=== PATIENT | male | born 1950 | race Caucasian/White ===

== ENCOUNTER → 2017-01-05 | Outpatient (CLI) | payer OTHER ==
[2017-01-05 12:24] LABS: CH 32.1; CHCM 33.7; HDW 2.69; HGB 16.4 gm/dL (13.0-17.5); MCHC 33.4 g/dL (31.0-37.0); MCV 95.9 fL (80.0-100.0); Mean Platelet Volume 6.9; RBC 5.11 m/uL (4.30-5.90); RDW 13.3 % (11.5-15.5); WBC 6.7 k/uL (3.8-10.6)
[2017-01-05 12:36] LABS: ALT 76 U/L (21-72); AST 45 U/L (17-59); Alkaline Phosphatase 42 U/L (38-126); Anion Gap 11 mmol/L; Blood Urea Nitrogen 16 mg/dL (9-20); Calcium 9.9 mg/dL (8.4-10.2); Carbon Dioxide 30 mmol/L (22-30); Chloride 102 mmol/L (98-107); Glucose 93 mg/dL (74-99); Magnesium 1.9 mg/dL (1.6-2.3); Non-African American GFR(MDRD) >60 (>60 ml/min/1.73 sqM); Phosphorous 3.5 mg/dL (2.5-4.5); Sodium 143 mmol/L (137-145); Total Bilirubin 0.6 mg/dL (0.2-1.3); Total Protein 7.8 g/dL (6.3-8.2)
--- NOTE | 2017-01-05 13:13 | US ---
EXAMINATION TYPE: US venous doppler duplex LE DATE OF EXAM: 01/05/2017 11:50 AM COMPARISON: NONE CLINICAL HISTORY: 66-year-old male I82.401 Embolism deep vein thrombosis. Bilateral calf pain, left l onger duration than right, no previous DVT SIDE PERFORMED: bilateral TECHNIQUE: The lower extremity deep venous system is examined utilizing real time linear array sonog indra with graded compression, doppler sonography and color-flow sonography. FINDINGS: VESSELS IMAGED: External Iliac Vein (EIV) Common Femoral Vein Deep Femoral Vein Greater Saphenous Vein * Femoral Vein Popliteal Vein Proximal Calf Veins (* superficial vessels) Right Leg: neg for RLE DVT Left Leg: neg for LLE DVT Results called to Dr Mcnulty at the time of the exam. IMPRESSION: No evidence for DVT within the bilateral lower extremities imaged from the groin to the upper calves.
== END | disposition home or self-care (01) ==
LOC: RADUSWWP 11:24
PROVIDERS: ATTEND Internal Medicine Sleep Medicine
DX: I82.401 Acute embolism and thrombosis of unspecified deep veins of right lower extremity (principal); I10 Essential (primary) hypertension
CPT/HCPCS: 80053; 83735; 84100; 85027; 93970

== ENCOUNTER → 2017-05-27 | Outpatient (CLI) | payer BC, MEDICARE ==
[2017-05-27 11:25] LABS: CH 32.6; CHCM 33.9; HCT 50.1 % (39.0-53.0); HDW 2.66; HGB 16.7 gm/dL (13.0-17.5); MCH 32.3 pg (25.0-35.0); MCHC 33.4 g/dL (31.0-37.0); MCV 96.6 fL (80.0-100.0); Mean Platelet Volume 6.7; RBC 5.18 m/uL (4.30-5.90); RDW 13.4 % (11.5-15.5); WBC 8.7 k/uL (3.8-10.6)
[2017-05-27 11:51] LABS: ALT 82 U/L (21-72); AST 41 U/L (17-59); Alkaline Phosphatase 53 U/L (38-126); Anion Gap 12 mmol/L; Blood Urea Nitrogen 16 mg/dL (9-20); Calcium 10.1 mg/dL (8.4-10.2); Carbon Dioxide 22 mmol/L (22-30); Chloride 102 mmol/L (98-107); Glucose 97 mg/dL (74-99); Non-African American GFR(MDRD) >60 (>60 ml/min/1.73 sqM); Potassium 4.6 mmol/L (3.5-5.1); Sodium 136 mmol/L (137-145); Total Bilirubin 0.6 mg/dL (0.2-1.3); Total Protein 7.3 g/dL (6.3-8.2)
[2017-05-27 12:18] LABS: Prostate Specific Antigen 0.43 ng/mL (0.00-4.00)
== END | disposition home or self-care (01) ==
LOC: LABWHC1 11:07
PROVIDERS: ATTEND Internal Medicine Sleep Medicine
DX: I10 Essential (primary) hypertension (principal); E55.9 Vitamin D deficiency, unspecified; N40.0 Benign prostatic hyperplasia without lower urinary tract symptoms
CPT/HCPCS: 36415; 80053; 82306; 84153; 85027

== ENCOUNTER → 2017-07-19 | Outpatient (CLI) | payer BC, MEDICARE ==
--- NOTE | 2017-07-19 16:52 | BD ---
EXAMINATION TYPE: MG DEXA axial skeleton. DATE OF EXAM: 07/19/2017 COMPARISON: NONE CLINICAL HISTORY: 67-year-old male screening for osteoporosis Height: 5 FT 9 IN Weight: 244 FRAX RISK QUESTIONS: Alcohol (3 or more units per day): NO Family History (Parent hip fracture): NO Glucocorticoids (More than 3mos): YES (Ex: prednisone, prednisolone, methylprednisolone, dexamethasone, and hydrocortisone). History of Fracture in Adulthood: NO Secondary Osteoporosis: 1. Type 1 Diabetes: NO 2. Hyperthyroidism: NO 3. Menopause before 45: N/A 4. Malnutrition: NO 5. Chronic liver disease: NO Rheumatoid Arthritis: NO Current Tobacco Use: NO RISK FACTORS HISTORY OF: Surgery to Spine/Hip(right/left)/Wrist (right/left): BASE OF THUMB When: 4-5 YEARS AGO Active: YES Postmenopausal woman: N/A MEDICATIONS: Prednisone or other steroids: YES How Lon 1 1/2 YEARS Additional Medications: ATENOLOL, PREDISONE, CYMBICORT, ALBUTEROL, SINGULAIR, ACIFEX Additional History: EXAM MEASUREMENTS: Bone mineral densitometry was performed using the [employer] System. Bone mineral density as measured about the Lumbar spine is: ----- L1-L4(G/cm2): 0.937 T Score Values are as follows: ----- L2: -2.4 ----- L3: -1.8 ----- L4: -3.2 (outlier) ----- L1-L4: -2.0 BASELINE Bone mineral density about the R hip (g/cm2): 0.854 Bone mineral density about the L hip (g/cm2): 0.945 T Score values are as follows: -----R Neck: -1.3 -----L Neck: -0.7 -----R Total: -0.5 -----L Total: 0.3 BASELINE IMPRESSION: Osteopenia (T Score between -2.5 and -1 as noted by T score values There is slightly increased risk of fracture and the patient may be considered for treatment. Re-Screen 2-5 years. NOTE: T-SCORE=SD OF THE YOUNG ADULT MEAN.
== END | disposition home or self-care (01) ==
LOC: RADBDWWP 08:17
PROVIDERS: ATTEND Family Medicine
DX: Z13.820 Encounter for screening for osteoporosis (principal); M85.80 Other specified disorders of bone density and structure, unspecified site; Z79.52 Long term (current) use of systemic steroids
CPT/HCPCS: 77080

== ENCOUNTER → 2017-12-16 | Outpatient (CLI) | payer MEDICARE, BC ==
--- NOTE | 2017-12-16 13:10 | XR ---
EXAMINATION TYPE: XR chest 2V DATE OF EXAM: 12/16/2017 COMPARISON: 06/04/2016 INDICATION: Cough, asthma TECHNIQUE: Frontal and lateral views of the chest are obtained. FINDINGS: The heart size is normal. The pulmonary vasculature is normal. The lungs are clear. IMPRESSION: 1. No acute pulmonary process.
== END | disposition home or self-care (01) ==
LOC: RADXRMAIN 12:42
PROVIDERS: ATTEND Internal Medicine Sleep Medicine
DX: J20.9 Acute bronchitis, unspecified (principal)
CPT/HCPCS: 71046

== ENCOUNTER → 2018-01-31 | Outpatient (CLI) | payer MEDICARE, BC ==
[2018-01-31 11:20] LABS: Anion Gap 13 mmol/L; Blood Urea Nitrogen 19 mg/dL (9-20); Calcium 9.4 mg/dL (8.4-10.2); Carbon Dioxide 24 mmol/L (22-30); Chloride 101 mmol/L (98-107); Glucose 107 mg/dL (74-99); Magnesium 1.8 mg/dL (1.6-2.3); Potassium 4.4 mmol/L (3.5-5.1); Sodium 138 mmol/L (137-145)
== END | disposition home or self-care (01) ==
LOC: LABWHC1 10:27
PROVIDERS: ATTEND Internal Medicine Sleep Medicine
DX: I10 Essential (primary) hypertension (principal)
CPT/HCPCS: 36415; 80048; 83735; 84100

== ENCOUNTER → 2018-06-17 | Outpatient (CLI) | payer MEDICARE, BC | END | disposition home or self-care (01) | LOC: LABWHC1 10:54 | PROVIDERS: ATTEND Internal Medicine Sleep Medicine | DX: J20.9 Acute bronchitis, unspecified (principal) | CPT/HCPCS: 87070; 87205 ==

== ENCOUNTER → 2019-01-19 | Outpatient (CLI) | payer MEDICARE, BC ==
--- NOTE | 2019-01-19 16:23 | XR ---
EXAMINATION TYPE: XR chest 2V DATE OF EXAM: 01/19/2019 COMPARISON: 12/16/2017 INDICATION: J 20.9 TECHNIQUE: Frontal and lateral views of the chest are obtained. FINDINGS: The heart size is normal. The pulmonary vasculature is normal. The lungs are clear. IMPRESSION: 1. No acute pulmonary process.
== END | disposition home or self-care (01) ==
LOC: RADXRMAIN 15:47
PROVIDERS: ATTEND Internal Medicine Sleep Medicine
DX: J20.9 Acute bronchitis, unspecified (principal)
CPT/HCPCS: 71046

== ENCOUNTER → 2019-01-26 | Outpatient (CLI) | payer MEDICARE, BC ==
[2019-01-26 12:18] LABS: Basophils % (A) 0 %; Eosinophils % (A) 0 %; HCT 51.4 % (39.0-53.0); HGB 16.5 gm/dL (13.0-17.5); Lymphocytes % (A) 7 %; MCH 30.8 pg (25.0-35.0); MCV 96.1 fL (80.0-100.0); Monocytes # (A) 0.6 k/uL (0-1.0); Monocytes % (A) 4 %; Neutrophils % (A) 88 %; Platelet Count 215 k/uL (150-450); RBC 5.35 m/uL (4.30-5.90); RDW 13.7 % (11.5-15.5); WBC 13.7 k/uL (3.8-10.6)
== END | disposition home or self-care (01) ==
LOC: LABWHC1 11:06
PROVIDERS: ATTEND Internal Medicine Sleep Medicine
DX: J45.51 Severe persistent asthma with (acute) exacerbation (principal)
CPT/HCPCS: 36415; 85025

== ENCOUNTER → 2019-07-07 | Outpatient (CLI) | payer MEDICARE, BC ==
--- NOTE | 2019-07-08 09:35 | US ---
EXAMINATION TYPE: US kidneys/renal and bladder DATE OF EXAM: 07/07/2019 COMPARISON: NONE CLINICAL HISTORY: R31.9 Hematuria. microscopic hematuria, bilateral groin pain, h/o bladder surgery 2 0+yrs ago EXAM MEASUREMENTS: Right Kidney: 9.5 x 4.7 x 6.0cm Left Kidney: 11.9 x 4.0 x 6.7 cm limited visualization due to large body habitus Right Kidney: No hydronephrosis or masses seen Left Kidney: No hydronephrosis or masses seen Bladder: wnl Bilateral Jets seen: yes There is no evidence for hydronephrosis at this point in time. No nephrolithiasis is seen. No danny s are identified. The urinary bladder is anechoic. Bilateral ureteral jets are seen. IMPRESSION: Negative
== END | disposition home or self-care (01) ==
LOC: RADUSWWP 16:08
PROVIDERS: ATTEND Family Medicine
DX: R31.9 Hematuria, unspecified (principal)
CPT/HCPCS: 76770

== ENCOUNTER → 2019-08-01 | Outpatient (CLI) | payer MEDICARE, BC ==
--- NOTE | 2019-08-01 12:56 | XR ---
EXAMINATION TYPE: XR chest 2V DATE OF EXAM: 08/01/2019 COMPARISON: 01/19/2019 HISTORY: 69-year-old male with sinus drainage, J44.9 TECHNIQUE: AP and lateral views FINDINGS: The heart is normal size. Aorta and pulmonary vasculature are within normal limits. Strandy atelectas is in the lower lungs. Mild interstitial prominence is unchanged. No consolidation or pleural effusio n. IMPRESSION: Chronic changes with strandy bibasilar atelectasis. No acute cardiopulmonary process.
== END | disposition home or self-care (01) ==
LOC: RADXRMAIN 12:14
PROVIDERS: ATTEND Internal Medicine Sleep Medicine
DX: J98.11 Atelectasis (principal); J44.9 Chronic obstructive pulmonary disease, unspecified
CPT/HCPCS: 71046

== ENCOUNTER → 2020-02-21 | Day surgery (SDC) | payer MEDICARE, BC ==
[2020-02-19 14:48] VITALS: BMI 36.9
[~2020-02-21] MED LIST: LACTATED RINGERS 1,000 ML IV ONE; LACTATED RINGERS 1,000 ML IV SCH; LIDOCAINE 1% (10MG/ML) FOR IV START INTRADERMA ONE; MIDAZOLAM 2 MG/2 ML VIAL ONE; PROPOFOL 10 MG/ML 20 ML VIAL IV ONE
[2020-02-21 08:13] VITALS: RESP 18; TEMP 97.4
[2020-02-21 08:20] LABS: Glucose,Whole Blood 97 mg/dL (75-99)
--- NOTE | 2020-02-21 09:13 | P.PCN ---
Date of Procedure: 02/21/20 Procedure(s) Performed: BRIEF HISTORY: Patient is a 69-year-old, pleasant, white male is scheduled for an upper endoscopy as a part of surveillance of long-standing history of GERD and Zafar's esophagus. PROCEDURE PERFORMED: Esophagogastroduodenoscopy with biopsy. PREOPERATIVE DIAGNOSIS: GERD/Zafar's esophagus. IV sedation per anesthesia. PROCEDURE: After informed consent was obtained, the patient was brought into the endoscopy unit. IV sedation was administered by Anesthesia under continuous monitoring. Initially the Olympus GIF-140 video endoscope was inserted into the mouth. Esophagus intubated without any difficulty. It was gradually advanced into the stomach and duodenum and carefully examined. The bulb and the second part of the duodenum appeared normal. The scope at this time was withdrawn to the stomach, adequately insufflated with air, and upon careful examination, mucosa of the antrum, body, had mild gastritis and small gastric polyps which were biopsied. The cardia and the fundus appeared normal. The scope was then withdrawn into the esophagus. Small sliding-type well hernia noted. The GE junction was located at 35 cm from the incisors. There was long segment of Zafar's esophagus extending from 31-35 cm from the incisors which appeared smooth with no nodularity seen. Multiple biopsies were done to rule out dysplasia. The rest of the esophagus appeared normal. There were no erosions or ulcerations seen and the patient tolerated the procedure well. IMPRESSION: 1. Long segment Zafar's esophagus extending from 31-35 cm from the incisors status post multiple biopsies to rule out dysplasia. 2. Small hiatal hernia. 3. Mild gastritis and small gastric polyps RECOMMENDATIONS: The findings of this examination were discussed with the patient as well as his family. He was advised to follow with the biopsy results. He will continue with AcipHex 20 mg twice daily and follow antireflux measures. If the biopsy does not show any evidence of dysplasia he can have a repeat upper endoscopy in 2-3 years.
[2020-02-21 09:39] VITALS: BP 130/82; PULSE 67
== END ==
LOC: ORWHC2ENDO 07:41
PROVIDERS: ATTEND Internal Medicine Gastroenterology
DX: K22.70 Barrett's esophagus without dysplasia (principal); K44.9 Diaphragmatic hernia without obstruction or gangrene; K31.7 Polyp of stomach and duodenum; K21.9 Gastro-esophageal reflux disease without esophagitis; I10 Essential (primary) hypertension; J45.909 Unspecified asthma, uncomplicated; Z88.1 Allergy status to other antibiotic agents; Z88.8 Allergy status to other drugs, medicaments and biological substances; Z79.51 Long term (current) use of inhaled steroids; Z79.899 Other long term (current) drug therapy
CPT/HCPCS: 88305; 43239; J2250; J2704

== ENCOUNTER 2020-04-11 07:50 | Observation (INO) | payer MEDICARE, BC ==
--- NOTE | 2020-04-11 08:16 | ED ---
General Adult HPI - General Chief complaint: Neuro Symptoms/Deficit Stated complaint: Confused Time Seen by Provider: 04/11/20 08:12 Source: patient Mode of arrival: wheelchair Limitations: no limitations - History of Present Illness Initial comments: Dictation was produced using [employer] dictation software. please excuse any grammatical, word or spelling errors. This patient was cared for during a federal and state declared state of emergency secondary to Covid 19 Chief Complaint: 70-year-old male with past medical history of asthma, hypertension, Zafar's esophagus presents with confusion and left hand paresthesias History of Present Illness: 70 year-old male here he has multiple comorbidities. He is accompanied by his was at bedside. who is at bedside reports that patient woke up this morning at approximately 6 AM with confusion. She describes as confusion as not remembering what their plans were for today. Yesterday they were making preparations to go camping in the city of [place]. This morning he was confused and forgot that they were supposed go camping today. Furthermore, he did not know where [place] was. Patient was confused/amnestic for several minutes however memory return. He remembers not remembering. Patient states that he also experience some left hand paresthesias that lasted for several minutes. Patient has any history of stroke. He does have strong family history of strokes however. Denies any other focal neurologic deficits. The ROS documented in this emergency department record has been reviewed and confirmed by me. Those systems with pertinent positive or negative responses have been documented in the HPI. All other systems are other negative and/or noncontributory. PHYSICAL EXAM: General Impression: Alert and oriented x3, not in acute distress HEENT: Normocephalic atraumatic, extra-ocular movements intact, pupils equal and reactive to light bilaterally, mucous membranes moist. Cardiovascular: Heart regular rate and rhythm Chest: Able to complete full sentences, no retractions, no tachypnea Abdomen: abdomen soft, non-tender, non-distended, no organomegaly Musculoskeletal: Pulses present and equal in all extremities, no peripheral edema Motor: no focal deficits noted Neurological: CN II-XII grossly intact, no focal motor or sensory deficits noted Skin: Intact with no visualized rashes Psych: Normal affect and mood ED course: 60-year-old male presents with confusion and left upper extremity paresthesias as upon arrival are within acceptable limits. Patient is asymptomatic at bedside. His physical exam is unremarkable. Patient is alert and oriented 3. He is not aphasic Clinical presentation concerning for transient ischemic attack. Laboratory evaluation obtained. CBC, coag panel, metabolic panel is unremarkable. Troponin is negative. Chest x-ray showed atelectasis versus infiltrate. X-ray likely consistent with atelectasis given patient has no respiratory symptoms or infectious symptoms. Computed tomography scan of the brain was obtained showing mild to moderate chronic small vessel ischemic disease. There are no acute intracranial abnormalities. Clinical presentation concerning for transient ischemic attack. Disposition options were discussed with patient. He is agreeable for admission to observation with consultation to neurology and possible TIA workup. Case discussed with on-call [facility] physician, Dr. Velazquez who was willing to accept patients care. Patient given aspirin. Neurology on consultation. EKG interpretation: Ventricular rate 67, normal sinus rhythm,. 180, QRS 102, QTC 424. No SD prolongation, no QTC prolongation, no ST or T-wave changes noted. EKG compared to 03/22/2015 showing no changes. Overall, this EKG is unremarkable - Related Data Home Medications Medication Instructions Recorded Confirmed atenoloL [Atenolol] 25 mg PO HS 03/13/15 04/11/20 Montelukast [Singulair] 10 mg PO HS 10/25/15 04/11/20 RABEprazole SODIUM [Aciphex] 20 mg PO HS 10/25/15 04/11/20 Budesonide/Formoterol Fumarate 2 puff INHALATION RT-BID 12/20/15 04/11/20 [Symbicort 80-4.5 Mcg Inhaler] predniSONE 10 mg PO DAILY 02/17/16 04/11/20 Ascorbic Acid [Vitamin C] 500 mg PO DAILY 08/03/17 04/11/20 Mepolizumab [Nucala] 100 mg SQ Q30D 02/19/20 04/11/20 Albuterol Inhaler [Ventolin Hfa 1 - 2 puff INHALATION RT-QID PRN 04/11/20 04/11/20 Inhaler] Cholecalciferol (Vitamin D3) 125 mcg PO DAILY 04/11/20 04/11/20 [Vitamin D3] Ipratropium-Albuterol Nebulize 3 ml INHALATION RT-BID 04/11/20 04/11/20 [Duoneb 0.5 mg-3 mg/3 ml Soln] Ipratropium-Albuterol Nebulize 3 ml INHALATION RT-BID PRN 04/11/20 04/11/20 [Duoneb 0.5 mg-3 mg/3 ml Soln] Magnesium 250 mg PO DAILY 04/11/20 04/11/20 Zinc 50 mg PO DAILY 04/11/20 04/11/20 Allergies Allergy/AdvReac Type Severity Reaction Status Date / Time levofloxacin Allergy Rash/Hives Verified 04/11/20 08:57 atorvastatin calcium AdvReac MUSCLE PAIN Verified 04/11/20 08:57 [From Lipitor] formoterol [From Dulera] AdvReac Rapid Verified 04/11/20 08:57 Heart Rate mometasone furoate AdvReac Rapid Verified 04/11/20 08:57 [From Dulera] Heart Rate Endbnub-Ith-Pwg Reductase AdvReac muscle pain Verified 04/11/20 08:57 Inhibitor Review of Systems ROS Statement: Those systems with pertinent positive or pertinent negative responses have been documented in the HPI. ROS Other: All systems not noted in ROS Statement are negative. Past Medical History Past Medical History: Asthma, Hypertension Additional Past Medical History / Comment(s): hiatal hernia, barretts esphagus History of Any Multi-Drug Resistant Organisms: None Reported Past Surgical History: Appendectomy, Bladder Surgery, Orthopedic Surgery, Tonsillectomy Additional Past Surgical History / Comment(s): DIANA WRISTS SX Past Anesthesia/Blood Transfusion Reactions: Postoperative Nausea & Vomiting (PONV) Additional Past Anesthesia/Blood Transfusion Reaction / Comment(s): STATES HE GETS SEVERE "MUSCLE SPASMS IN HIS STOMACH IN POST OP" Past Psychological History: No Psychological Hx Reported Smoking Status: Former smoker Past Alcohol Use History: Occasional Past Drug Use History: None Reported - Past Family History Father Family Medical History: Cancer Additional Family Medical History / Comment(s): LIVER Mother Family Medical History: Hypertension General Exam Limitations: no limitations Course Vital Signs 04/11/20 04/11/20 07:57 09:16 Temperature 98.1 F Pulse Rate 76 69 Respiratory 18 118 H Rate Blood Pressure 156/82 141/79 O2 Sat by Pulse 97 94 L Oximetry Medical Decision Making - Lab Data Result diagrams: 04/11/20 08:19 04/11/20 08:19 Lab Results 04/11/20 04/11/20 04/11/20 Range/Units 08:19 08:19 08:19 WBC 6.7 (3.8-10.6) k/uL RBC 5.38 (4.30-5.90) m/uL Hgb 17.1 (13.0-17.5) gm/dL Hct 51.5 (39.0-53.0) % MCV 95.9 (80.0-100.0) fL MCH 31.9 (25.0-35.0) pg MCHC 33.3 (31.0-37.0) g/dL RDW 13.5 (11.5-15.5) % Plt Count 193 (150-450) k/uL Neutrophils % 55 % Lymphocytes % 35 % Monocytes % 6 % Eosinophils % 1 % Basophils % 1 % Neutrophils # 3.7 (1.3-7.7) k/uL Lymphocytes # 2.4 (1.0-4.8) k/uL Monocytes # 0.4 (0-1.0) k/uL Eosinophils # 0.1 (0-0.7) k/uL Basophils # 0.0 (0-0.2) k/uL PT 9.8 (9.0-12.0) sec INR 0.9 (<1.2) APTT 23.0 (22.0-30.0) sec Sodium 136 L (137-145) mmol/L Potassium 4.4 (3.5-5.1) mmol/L Chloride 103 (98-107) mmol/L Carbon Dioxide 25 (22-30) mmol/L Anion Gap 8 mmol/L BUN 15 (9-20) mg/dL Creatinine 1.05 (0.66-1.25) mg/dL Est GFR (CKD-EPI)AfAm 84 (>60 ml/min/1.73 sqM) Est GFR (CKD-EPI)NonAf 73 (>60 ml/min/1.73 sqM) Glucose 116 H (74-99) mg/dL Calcium 9.5 (8.4-10.2) mg/dL Total Bilirubin 0.8 (0.2-1.3) mg/dL AST 42 (17-59) U/L ALT 47 (4-49) U/L Alkaline Phosphatase 39 (38-126) U/L Troponin I (0.000-0.034) ng/mL Total Protein 7.2 (6.3-8.2) g/dL Albumin 4.4 (3.5-5.0) g/dL 04/11/20 Range/Units 08:19 WBC (3.8-10.6) k/uL RBC (4.30-5.90) m/uL Hgb (13.0-17.5) gm/dL Hct (39.0-53.0) % MCV (80.0-100.0) fL MCH (25.0-35.0) pg MCHC (31.0-37.0) g/dL RDW (11.5-15.5) % Plt Count (150-450) k/uL Neutrophils % % Lymphocytes % % Monocytes % % Eosinophils % % Basophils % % Neutrophils # (1.3-7.7) k/uL Lymphocytes # (1.0-4.8) k/uL Monocytes # (0-1.0) k/uL Eosinophils # (0-0.7) k/uL Basophils # (0-0.2) k/uL PT (9.0-12.0) sec INR (<1.2) APTT (22.0-30.0) sec Sodium (137-145) mmol/L Potassium (3.5-5.1) mmol/L Chloride (98-107) mmol/L Carbon Dioxide (22-30) mmol/L Anion Gap mmol/L BUN (9-20) mg/dL Creatinine (0.66-1.25) mg/dL Est GFR (CKD-EPI)AfAm (>60 ml/min/1.73 sqM) Est GFR (CKD-EPI)NonAf (>60 ml/min/1.73 sqM) Glucose (74-99) mg/dL Calcium (8.4-10.2) mg/dL Total Bilirubin (0.2-1.3) mg/dL AST (17-59) U/L ALT (4-49) U/L Alkaline Phosphatase (38-126) U/L Troponin I <0.012 (0.000-0.034) ng/mL Total Protein (6.3-8.2) g/dL Albumin (3.5-5.0) g/dL Disposition Clinical Impression: TIA (transient ischemic attack) Disposition: ADMITTED IP TO THIS HOSP Condition: Fair Decision Time: 10:05
[2020-04-11 08:30] LABS: Basophils % (A) 1 %; Eosinophils # (A) 0.1 k/uL (0-0.7); Eosinophils % (A) 1 %; HCT 51.5 % (39.0-53.0); HGB 17.1 gm/dL (13.0-17.5); Lymphocytes # (A) 2.4 k/uL (1.0-4.8); Lymphocytes % (A) 35 %; MCH 31.9 pg (25.0-35.0); MCHC 33.3 g/dL (31.0-37.0); MCV 95.9 fL (80.0-100.0); Mean Platelet Volume 7.4; Monocytes # (A) 0.4 k/uL (0-1.0); Monocytes % (A) 6 %; Neutrophils # (A) 3.7 k/uL (1.3-7.7); Neutrophils % (A) 55 %; Platelet Count 193 k/uL (150-450); RBC 5.38 m/uL (4.30-5.90); RDW 13.5 % (11.5-15.5); WBC 6.7 k/uL (3.8-10.6)
[2020-04-11 08:46] LABS: Albumin 4.4 g/dL (3.5-5.0); Calcium 9.5 mg/dL (8.4-10.2); Potassium 4.4 mmol/L (3.5-5.1); Total Bilirubin 0.8 mg/dL (0.2-1.3); Total Protein 7.2 g/dL (6.3-8.2)
--- NOTE | 2020-04-11 08:48 | CT ---
EXAMINATION TYPE: CT brain wo con DATE OF EXAM: 04/11/2020 COMPARISON: None HISTORY: 70-year-old male neurologic deficit, acute, stroke suspected, confusion, left finger tinglin g TECHNIQUE: Examination was done in axial plane without intravenous contrast. Coronal and sagittal r econstructions performed. CT DLP: 1099.4 mGycm Automated exposure control for dose reduction was used. FINDINGS: There is no evidence of acute intracranial hemorrhage, acute ischemic changes, mass, mass-effect, or extra-axial fluid collection. There is no effacement of cerebral sulci or basal subarachnoid cister ns. There is no hydrocephalus. There is no midline shift. Almendarez-white matter distinction is preserv ed. Atherosclerotic calcifications within the carotid siphons Scattered mild to moderate patchy white matter hypodensities in the subcortical, deep, and periventri cular regions of both cerebral hemispheres. Rightward nasal septal deviation. Mild mucosal thickening posterior ethmoid air cells. Orbits and melvi bes appear intact. Mastoid air cells well pneumatized. IMPRESSION: Mild to moderate patchy burden of chronic small vessel ischemic disease. No acute intracranial abnorm ality seen.
--- NOTE | 2020-04-11 08:51 | XR ---
EXAMINATION TYPE: XR chest 2V DATE OF EXAM: 04/11/2020 COMPARISON: 08/01/2019 HISTORY: 70-year-old male confusion, altered mental status TECHNIQUE: PA and lateral views FINDINGS: The cardiomediastinal silhouette, aorta, and pulmonary vasculature are within normal limits. There is new patchy right basilar opacity. No other consolidation or pleural effusion. IMPRESSION: New patchy right basilar opacity. Correlate for atelectasis versus early pneumonia.
[2020-04-11 09:18] LABS: INR 0.9 (<1.2)
[2020-04-11 09:19] LABS: Prothrombin Time 9.8 sec (9.0-12.0)
[2020-04-11] MEDS ORDERED: ASPIRIN 81 MG PO STA (09:26)
[2020-04-11] MEDS ORDERED: NALOXONE 0.4 MG/ML 1 ML VIAL IV PRN (09:35)
[2020-04-11] MEDS: SODIUM CHLORIDE 0.9% 1,000 ML IV SCH (10:27)
[2020-04-11 13:20] VITALS: RESP 16
--- NOTE | 2020-04-11 15:53 | P.CNPUL ---
History of Present Illness Consult date: 04/11/20 Reason for consult: asthma, COPD Chief complaint: Confusion History of present illness: This is a 70-year-old male with history of remote smoking, patient has history of chronic severe persistent asthma, he had his prednisone dependent, he wakes up this morning with confusion, patient had this episode lasted several minutes, slowly started coming back into normal status, with return of memory, currently patient feels stable denies any chest pain denies any shortness of breath chest pain, denies any wheezing, patient is a long-standing history of chronic asthma which is an ALLERGIC asthma has been on biologic for several years which however has been changed from Xolair, which was stopped several years ago as having severe arthralgia followed by placement on Fasenra which was stopped as patient felt that not helping him much, patient required significant dose of prednisone to maintain his asthma symptoms however since he is been on new Nucala from September 2019 able to decrease the prednisone to 10 mg maintenance dose, his respiratory status fairly stable, his the computed tomography scan of the head failed to reveal any significant acute changes small vessel disease has been identified, chest x-ray suggestive of right lower lobe early pneumonia/versus atelectasis, white cell count is normal Review of Systems All systems: negative Past Medical History Past Medical History: Asthma, Eye Disorder, Hyperlipidemia, Hypertension, Osteoarthritis (OA), Pneumonia, Respiratory Disorder Additional Past Medical History / Comment(s): Asthma-steroid dependent, bronchitis, unable to tolerate statins, hiatal hernia, Zafar's esophagus, gastric/colon benign polyps, starting of bilateral cataracts, occasional back pain. History of Any Multi-Drug Resistant Organisms: None Reported Past Surgical History: Appendectomy, Bladder Surgery, Hernia Repair, Orthopedic Surgery, Tonsillectomy Additional Past Surgical History / Comment(s): egds, colonoscopies, cystoscopies-had bladder "reshaped", R inguinal hernia repair, bilateral thumb basal joint surgeris, bilateral carpal tunnel releases, L wrist ganglion cystectomy Past Anesthesia/Blood Transfusion Reactions: Postoperative Nausea & Vomiting (PONV) Additional Past Anesthesia/Blood Transfusion Reaction / Comment(s): Muscle cramp s in abdomin post op Past Psychological History: No Psychological Hx Reported Additional Psychological History / Comment(s): Pt resides with his spouse. He has a nebulizer. He is independent. Smoking Status: Former smoker Past Alcohol Use History: Occasional Additional Past Alcohol Use History / Comment(s): Pt started smoking as a teen and qit in 1979. Past Drug Use History: None Reported - Past Family History Father Family Medical History: Cancer Additional Family Medical History / Comment(s): LIVER. Father is . Mother Family Medical History: Hypertension Additional Family Medical History / Comment(s): Mother is . Medications and Allergies Home Medications Medication Instructions Recorded Confirmed Type atenoloL [Atenolol] 25 mg PO HS 03/13/15 04/11/20 History Montelukast [Singulair] 10 mg PO HS 10/25/15 04/11/20 History RABEprazole SODIUM [Aciphex] 20 mg PO HS 10/25/15 04/11/20 History Budesonide/Formoterol Fumarate 2 puff INHALATION RT-BID 12/20/15 04/11/20 History [Symbicort 80-4.5 Mcg Inhaler] predniSONE 10 mg PO DAILY 02/17/16 04/11/20 History Ascorbic Acid [Vitamin C] 500 mg PO DAILY 08/03/17 04/11/20 History Mepolizumab [Nucala] 100 mg SQ Q30D 02/19/20 04/11/20 History Albuterol Inhaler [Ventolin Hfa 1 - 2 puff INHALATION RT-QID PRN 04/11/20 04/11/20 History Inhaler] Cholecalciferol (Vitamin D3) 125 mcg PO DAILY 04/11/20 04/11/20 History [Vitamin D3] Ipratropium-Albuterol Nebulize 3 ml INHALATION RT-BID 04/11/20 04/11/20 History [Duoneb 0.5 mg-3 mg/3 ml Soln] Ipratropium-Albuterol Nebulize 3 ml INHALATION RT-BID PRN 04/11/20 04/11/20 History [Duoneb 0.5 mg-3 mg/3 ml Soln] Magnesium 250 mg PO DAILY 04/11/20 04/11/20 History Zinc 50 mg PO DAILY 04/11/20 04/11/20 History Allergies Allergy/AdvReac Type Severity Reaction Status Date / Time levofloxacin Allergy Rash/Hives Verified 04/11/20 08:57 atorvastatin calcium AdvReac MUSCLE PAIN Verified 04/11/20 08:57 [From Lipitor] formoterol [From Dulera] AdvReac Rapid Verified 04/11/20 08:57 Heart Rate mometasone furoate AdvReac Rapid Verified 04/11/20 08:57 [From Dulera] Heart Rate Wxofpix-Pjz-Iun Reductase AdvReac muscle pain Verified 04/11/20 08:57 Inhibitor Physical Exam Vitals: Vital Signs Temp Pulse Pulse Resp BP BP Pulse Ox 04/11/20 10:50 98.0 F 68 16 172/90 96 04/11/20 10:28 65 18 163/89 95 04/11/20 09:16 69 118 H 141/79 94 L 04/11/20 07:57 98.1 F 76 18 156/82 97 Intake and Output 04/11/20 04/11/20 04/11/20 06:59 14:59 22:59 Intake Total 0 Balance 0 Intake: Oral 0 Other: Weight 115.269 kg - Constitutional General appearance: disheveled, morbidly obese, no acute distress - EENT Eyes: PERRLA Ears: bilateral: normal - Neck Carotids: bilateral: upstroke normal - Respiratory Respiratory: bilateral: CTA - Cardiovascular Rhythm: regular Heart sounds: normal: S1, S2 - Integumentary Integumentary: normal turgor - Neurologic Neurologic: CNII-XII intact - Musculoskeletal Musculoskeletal: gait normal, generalized weakness, strength equal bilaterally - Psychiatric Psychiatric: A&O x's 3, appropriate affect, intact judgment & insight Results - Laboratory Findings CBC and BMP: 04/11/20 08:19 04/11/20 08:19 PT/INR, D-dimer PT 9.8 sec (9.0-12.0) 04/11/20 08:19 INR 0.9 (<1.2) 04/11/20 08:19 Abnormal lab findings: Abnormal Labs 04/11/20 08:19 Sodium 136 L Glucose 116 H - Diagnostic Findings Chest x-ray: report reviewed (Finding as noted above), image reviewed Assessment and Plan Assessment: Episode of confusion/altered mental status new-onset slowly improving neurological workup is in progress Right lower lobe pneumonia versus atelectasis Chronic severe persistent asthma prednisone dependent and biologic dependent Hypertension hypertensive cardiovascular disease GERD Plan: Agree with neurological workup We'll continue maintenance prednisone along with bronchodilator We'll check pro-calcitonin as well as d-dimer if elevated then further plan of care and recommendations will be forwarded Time with Patient: Greater than 30
--- NOTE | 2020-04-11 16:16 | P.CNNES ---
History of Present Illness Consult date: 04/11/20 Requesting physician: Nick Moreno Reason for Consult: Peroid of confusion, concern for TIA History of Present Illness: This is a 70-year-old right-handed gentleman with medical history of hypertension, severe asthma who presented to the emergency department on 04/11/2020 for episode of confusion. The patient is accompanied with his who states that they were planning of going camping today. The alarm was set at 6:00 in the morning. Upon the alarm going off the patient woke up and said pointing at the alarm saying what is that. He asked his what does the alarm do. The told him that the there is supposed to go to camping today. The patient seemed puzzled and has no idea about the trip. Initially the thought that the patient was joking. The patient was looking out the window and the was asking why is the trailer up to the truck. The stated that he was the one that didn't show to the truck. He has no recollection of M Oken the [place] to the truck. He didn't have any idea what trip they're going to even though that was planned that had of time and advance. The stated that the episode lasted for a good 30 minutes. But he was not back to baseline until maybe an hour and a half to two hours. Per the the patient had no focal weakness, facial weakness, slurring of the speech. His words were coming out clear. Patient does not have any previous episodes similar to this. Patient does not have recollection of what happened in the beginning of the upon waking up. But does have recollection the about him asking his about the states she felt to the truck. Per the patient as well as he is back to baseline. He does have recollection of the anal planning the trip as well going to the trip today. Patient does not have any acute trauma to the head that. Patient does not have any numbness tingling gait and visual disturbance. No fever no chills. No nausea no vomiting. No headache associated with this. He was not started on any new medication recently. Per the patient he didn't have any headaches associated with this episode. No jerk in the episodes seen no urinary bowel incontinence. He does not have history of seizures. Of note: Patient does have history of migraine without any headaches he has some streaking lines that the both eyes associate with that when he gets the migraines they're alleviated with the Excedrin. He gets some very rare. And he did not have these episodes today. Patient does have remote history of smoking he smoked for 20 years and that quit in 1979. He socially drinks all call. Mom has history of TIA as well as stroke in her 70s to 80s [id number]. Father of liver cancer from all call use. Patient is not on the aspirin at home. The patient cannot tolerate statins he tried multiple statins in the past and he had muscle pain. Workup in the ED consisted of: Initial vital signs were blood pressure of 156/82, heart rate of 76, respiratory of 18, temperature of 98.1 Fahrenheit oral, pulse ox of [address] of the head which was reported as mild to moderate patchy burden of chronic small vessel ischemic disease. No acute intracranial abnormality seen. EKG was reported as normal sinus rhythm. Nonspecific T wave abnormality. The ventricular rate 67. Review of Systems Review of system: The 12 point system was reviewed and apparent positive and negative per HPI. Past Medical History Past Medical History: Asthma, Eye Disorder, Hyperlipidemia, Hypertension, Osteoarthritis (OA), Pneumonia, Respiratory Disorder Additional Past Medical History / Comment(s): Asthma-steroid dependent, bronchitis, unable to tolerate statins, hiatal hernia, Zafar's esophagus, gastric/colon benign polyps, starting of bilateral cataracts, occasional back pain. History of Any Multi-Drug Resistant Organisms: None Reported Past Surgical History: Appendectomy, Bladder Surgery, Hernia Repair, Orthopedic Surgery, Tonsillectomy Additional Past Surgical History / Comment(s): egds, colonoscopies, cystoscopies-had bladder "reshaped", R inguinal hernia repair, bilateral thumb basal joint surgeris, bilateral carpal tunnel releases, L wrist ganglion cystectomy Past Anesthesia/Blood Transfusion Reactions: Postoperative Nausea & Vomiting (PONV) Additional Past Anesthesia/Blood Transfusion Reaction / Comment(s): Muscle cramps in abdomin post op Past Psychological History: No Psychological Hx Reported Additional Psychological History / Comment(s): Pt resides with his spouse. He has a nebulizer. He is independent. Smoking Status: Former smoker Past Alcohol Use History: Occasional Additional Past Alcohol Use History / Comment(s): Pt started smoking as a teen and qit in 1979. Past Drug Use History: None Reported - Past Family History Father Family Medical History: Cancer Additional Family Medical History / Comment(s): LIVER. Father is . Mother Family Medical History: Hypertension Additional Family Medical History / Comment(s): Mother is . Medications and Allergies Home Medications Medication Instructions Recorded Confirmed Type atenoloL [Atenolol] 25 mg PO HS 03/13/15 04/11/20 History Montelukast [Singulair] 10 mg PO HS 10/25/15 04/11/20 History RABEprazole SODIUM [Aciphex] 20 mg PO HS 10/25/15 04/11/20 History Budesonide/Formoterol Fumarate 2 puff INHALATION RT-BID 12/20/15 04/11/20 History [Symbicort 80-4.5 Mcg Inhaler] predniSONE 10 mg PO DAILY 02/17/16 04/11/20 History Ascorbic Acid [Vitamin C] 500 mg PO DAILY 08/03/17 04/11/20 History Mepolizumab [Nucala] 100 mg SQ Q30D 02/19/20 04/11/20 History Albuterol Inhaler [Ventolin Hfa 1 - 2 puff INHALATION RT-QID PRN 04/11/20 04/11/20 History Inhaler] Cholecalciferol (Vitamin D3) 125 mcg PO DAILY 04/11/20 04/11/20 History [Vitamin D3] Ipratropium-Albuterol Nebulize 3 ml INHALATION RT-BID 04/11/20 04/11/20 History [Duoneb 0.5 mg-3 mg/3 ml Soln] Ipratropium-Albuterol Nebulize 3 ml INHALATION RT-BID PRN 04/11/20 04/11/20 History [Duoneb 0.5 mg-3 mg/3 ml Soln] Magnesium 250 mg PO DAILY 04/11/20 04/11/20 History Zinc 50 mg PO DAILY 04/11/20 04/11/20 History Allergies Allergy/AdvReac Type Severity Reaction Status Date / Time levofloxacin Allergy Rash/Hives Verified 04/11/20 08:57 atorvastatin calcium AdvReac MUSCLE PAIN Verified 04/11/20 08:57 [From Lipitor] formoterol [From Dulera] AdvReac Rapid Verified 08/13/20 08:57 Heart Rate mometasone furoate AdvReac Rapid Verified 04/11/20 08:57 [From Dulera] Heart Rate Cddjlyn-Hof-Hkw Reductase AdvReac muscle pain Verified 04/11/20 08:57 Inhibitor Physical Examination - Vital Signs Vital Signs: Vital Signs Temp Pulse Pulse Resp BP BP Pulse Ox 04/11/20 10:50 98.0 F 68 16 172/90 96 04/11/20 10:28 65 18 163/89 95 04/11/20 09:16 69 118 H 141/79 94 L 04/11/20 07:57 98.1 F 76 18 156/82 97 Intake and Output 04/10/20 04/11/20 04/11/20 22:59 06:59 14:59 Intake Total 0 Balance 0 Intake: Oral 0 Other: Weight 115.269 kg GENERAL: The patient is lying in bed and is not in acute distress. CHEST: The heart rate is regular rate rhythm. No murmurs to auscultation. No carotid bruit bilaterally. LUNG: Clear to auscultation bilaterally no wheezing noted throughout. Not labored breathing. ABDOMEN/GI: Bowel sounds present in all 4 quadrants. No tenderness to palpation throughout. NEUROLOGICAL: Higher mental function: The patient is awake, alert, oriented to self, place and time. Patient is following commands. No aphasia and no neglect. Cranial nerves: The pupils are round, equal and reactive to light and accommodation. Visual jacome are full to confrontation throughout. Extraocular movement is intact no nystagmus is noted. Facial sensation is normal to touch throughout. The facial strength is normal throughout. Hearing is normal bilaterally to hand rub. Tongue is midline and moved [id number] without any difficulty. No dysarthria is noted. Shoulder shrug is normal bilaterally. Motor: The strength is 5 over 5 throughout. Normal tone and bulk. Cerebellum: Normal finger to nose heel to chin bilaterally. Sensation: Sensation is normal to touch throughout. Reflexes (right/left): 2+ Plantars are downgoing bilaterally. Results PT of 9.8, INR of 0.9, PTT of 23.0. AST of 42, ALT of 47. Last TSH was 1.45 on 11/03/2019. Last vitamin B12 was 509 on 09/28/2018 hemoglobin A1c last was 5.4 on 01/09/2016 - Laboratory Findings CBC and BMP: 04/11/20 08:19 04/11/20 08:19 Abnormal Lab Findings: Abnormal Labs 04/11/20 08:19 Sodium 136 L Glucose 116 H Assessment and Plan Assessment: Mr. Rodriguez is a 70-year-old right-handed gentleman with medical history of hypertension, severe asthma who presented to the emergency department on 04/11/2020 for episode of confusion. Per this happened at 6am where he did not have recollection what they were doing today, and what is alarm and why is it going off. This episode lasted for at least 30 minutes that was significant and was back to baseline for 1 1/2 to 2 hours. Transient Global amnesia: Unclear etiology Severe Asthma HTN Plan: Ordered EEG. Will not start on antiepileptic unless seizure is detected. Her TSH as well as a B12. In the ED the team ordered MRI of the brain, echocardiogram as well as carotid duplex. Will not start patient on statin since he tried multiple statins and had muscle pain. Regarding Aspirin the patient has significant history of asthma and will deter from using Aspirin. Patient is on prednisone 10 mg daily at home, zinc 50 mg, magnesium 250 mg, Mepolizumab for his severe asthma. Patient was provided that upon discharge she is to follow up with a neurologist within 2 weeks. Thank you for the consult. Jhonny Ramos M.D. Neuro-hospitalist Time with Patient: Greater than 30
--- NOTE | 2020-04-11 16:40 | US ---
EXAMINATION TYPE: US carotid duplex BILAT DATE OF EXAM: 04/11/2020 COMPARISON: NONE CLINICAL HISTORY: TIA. Altered mental status, TIA EXAM MEASUREMENTS: RIGHT: Peak Systolic Velocity (PSV) cm/sec ----- Right CCA: 83.8 ----- Right ICA: 125 ----- Right ECA: 108 ICA/CCA ratio: 1.49 RIGHT: End Diastole cm/sec ----- Right CCA: 20.1 ----- Right ICA: 43.5 ----- Right ECA: 13.0 LEFT: Peak Systolic Velocity (PSV) cm/sec ----- Left CCA: 123 ----- Left ICA: 99.4 ----- Left ECA: 91.6 ICA/CCA ratio: 0.81 LEFT: End Diastole cm/sec ----- Left CCA: 0.0 ----- Left ICA: 33.1 ----- Left ECA: 13.0 VERTEBRALS (direction of flow): Right Vertebral: Antegrade Left Vertebral: Antegrade Rhythm: Normal Mild plaque bilateral bifurcations. No evidence of significant stenosis IMPRESSION: There is antegrade flow in the vertebral arteries. The images and measurements suggest c lose to 0% stenosis in both internal carotid arteries. Criteria for Assigning % of Stenosis / Diameter reduction (Estimation based on the indirect measurements of the internal carotid artery velocities (ICA PSV). 1. Normal (no stenosis)=ICA PSV < 125 cm/s: ratio < 2.0: ICA EDV<40 cm/s. 2. Less than 50% stenosis=ICA PSV < 125 cm/s: ratio < 2.0: ICA EDV<40 cm/s. 3. 50 to 69% stenosis=ICA PSV of 125 to 230 cm/s: ration 2.0 ? 4.0: ICA EDV 40-100 cm/s. 4. Greater than 70% stenosis to near occlusion= ICA PSV > 230 cm/s: ratio > 4.0: ICA EDV > 100 cm/s. 5. Near occlusion= ICA PSV velocities may be low or undetectable: variable ratio and ICA EDV. 6. Total occlusion=unable to detect flow.
[2020-04-11] MEDS ORDERED: ACETAMINOPHEN TAB 325 MG TAB PO PRN (17:20)
--- NOTE | 2020-04-11 17:22 | P.HPIM ---
History of Present Illness H&P Date: 04/11/20 Chief Complaint: Confusion 62-year-old male with PMH of severe asthma, Zafar's esophagus, hiatal hernia presents the ED for acute confusion. Patient is at bedside providing majority of the history. Patient and his has been planning a vacation that was supposed to happen today. They had been packing up the camper yesterday. When his alarm clock during this morning, patient did not understand why it was ringing. He had no recollection over the planned vacation and where they were going. He also reported paresthesias in his left hand for the first time. He d enied any slurred speech or difficulty swallowing. He denies any numbness, weakness or tingling of the extremities. He denied any headache, lower extremity edema, nausea or vomiting, fever or chills, cough, chest pain, palpitations, changes in urination or bowel habits. No changes in appetite or weight. He denies any dizziness. In the ED, his vital signs are stable except for mildly elevated BP. CBC was unremarkable. INR was negative. CMP showed sodium of [address] brain was negative. Patient is admitted for altered mental status, rule out CVA with neurology consultation. Review of Systems Pertinent positives and negatives as discussed in HPI, a complete review of systems was performed and all other systems are negative. Past Medical History Past Medical History: Asthma, Eye Disorder, Hyperlipidemia, Hypertension, Osteoarthritis (OA), Pneumonia, Respiratory Disorder Additional Past Medical History / Comment(s): Asthma-steroid dependent, br onchitis, unable to tolerate statins, hiatal hernia, Zafar's esophagus, gastric/colon benign polyps, starting of bilateral cataracts, occasional back pain. History of Any Multi-Drug Resistant Organisms: None Reported Past Surgical History: Appendectomy, Bladder Surgery, Hernia Repair, Orthopedic Surgery, Tonsillectomy Additional Past Surgical History / Comment(s): egds, colonoscopies, cystoscopies-had bladder "reshaped", R inguinal hernia repair, bilateral thumb basal joint surgeris, bilateral carpal tunnel releases, L wrist ganglion cystectomy Past Anesthesia/Blood Transfusion Reactions: Postoperative Nausea & Vomiting (PONV) Additional Past Anesthesia/Blood Transfusion Reaction / Comment(s): Muscle cramps in abdomin post op Past Psychological History: No Psychological Hx Reported Additional Psychological History / Comment(s): Pt resides with his spouse. He has a nebulizer. He is independent. Smoking Status: Former smoker Past Alcohol Use History: Occasional Additional Past Alcohol Use History / Comment(s): Pt started smoking as a teen and qit in 1979. Past Drug Use History: None Reported - Past Family History Father Family Medical History: Cancer Additional Family Medical History / Comment(s): LIVER. Father is . Mother Family Medical History: Hypertension Additional Family Medical History / Comment(s): Mother is . Medications and Allergies Home Medications Medication Instructions Recorded Confirmed Type atenoloL [Atenolol] 25 mg PO HS 03/13/15 04/11/20 History Montelukast [Singulair] 10 mg PO HS 10/25/15 04/11/20 History RABEprazole SODIUM [Aciphex] 20 mg PO HS 10/25/15 04/11/20 History Budesonide/Formoterol Fumarate 2 puff INHALATION RT-BID 12/20/15 04/11/20 History [Symbicort 80-4.5 Mcg Inhaler] predniSONE 10 mg PO DAILY 02/17/16 04/11/20 History Ascorbic Acid [Vitamin C] 500 mg PO DAILY 08/03/17 04/11/20 History Mepolizumab [Nucala] 100 mg SQ Q30D 02/19/20 04/11/20 History Albuterol Inhaler [Ventolin Hfa 1 - 2 puff INHALATION RT-QID PRN 04/11/20 04/11/20 History Inhaler] Cholecalciferol (Vitamin D3) 125 mcg PO DAILY 04/11/20 04/11/20 History [Vitamin D3] Ipratropium-Albuterol Nebulize 3 ml INHALATION RT-BID 04/11/20 04/11/20 History [Duoneb 0.5 mg-3 mg/3 ml Soln] Ipratropium-Albuterol Nebulize 3 ml INHALATION RT-BID PRN 04/11/20 04/11/20 History [Duoneb 0.5 mg-3 mg/3 ml Soln] Magnesium 250 mg PO DAILY 04/11/20 04/11/20 History Zinc 50 mg PO DAILY 04/11/20 04/11/20 History Allergies Allergy/AdvReac Type Severity Reaction Status Date / Time levofloxacin Allergy Rash/Hives Verified 04/11/20 08:57 atorvastatin calcium AdvReac MUSCLE PAIN Verified 04/11/20 08:57 [From Lipitor] formoterol [From Dulera] AdvReac Rapid Verified 04/11/20 08:57 Heart Rate mometasone furoate AdvReac Rapid Verified 04/11/20 08:57 [From Dulera] Heart Rate Qaxnflf-Ixu-Uwj Reductase AdvReac muscle pain Verified 04/11/20 08:57 Inhibitor Physical Exam Vitals: Vital Signs Temp Pulse Pulse Resp BP BP Pulse Ox 04/11/20 16:41 97.9 F 65 16 157/88 97 04/11/20 10:50 98.0 F 68 16 172/90 96 04/11/20 10:28 65 18 163/89 95 04/11/20 09:16 69 118 H 141/79 94 L 04/11/20 07:57 98.1 F 76 18 156/82 97 Intake and Output 04/11/20 04/11/20 04/11/20 06:59 14:59 22:59 Intake Total 0 Balance 0 Intake: Oral 0 Other: Weight 115.269 kg General: [non toxic], [no distress], [appears at stated age] Derm: [warm], [dry] Head: [atraumatic], [normocephalic], [symmetric] Eyes: [EOMI], [no lid lag], [anicteric sclera] Mouth: [no lip lesion], [mucus membranes moist] Cardiovascular: [S1S2 reg], [no murmur], [positive DP pulse bilateral], Lungs: [CTA bilateral], [no rhonchi, no rales] , [no accessory muscle use] Abdominal: [soft], [ nontender to palpation], [no guarding], [no appreciable organomegaly] Ext: [no gross muscle atrophy], [no edema], [no contractures] Neuro: [ CN II-XI grossly intact], [no focal neuro deficits] Psych: [Alert], [oriented], [appropriate affect] Results CBC & Chem 7: 04/11/20 08:19 04/11/20 08:19 Labs: Abnormal Lab Results - Last 24 Hours (Table) 04/11/20 Range/Units 08:19 Sodium 136 L (137-145) mmol/L Glucose 116 H (74-99) mg/dL Thrombosis Risk Factor Assmnt - Choose All That Apply Any of the Below Risk Factors Present?: Yes Each Factor Represents 1 point: Obesity (BMI >25) Other Risk Factors: Yes Each Risk Factor Represents 2 Points: Age 61-74 years Other congenital or acquired thrombophilia - If yes, enter type in comment: No Thrombosis Risk Factor Assessment Total Risk Factor Score: 3 Thrombosis Risk Factor Assessment Level: Moderate Risk Assessment and Plan Assessment: Altered mental status with left upper extremity paresthesia Severe asthma Zafar's esophagus Hypertension Patient's altered mental status with acute onset is of unknown etiology. Plans to rule out CVA. Follow-up echocardiogram. Follow-up MRI brain. From a carotid Doppler. Neurology consulted, recommends EEG. Telemetry monitoring. Neurochecks. Unable to start aspirin due to severe asthma. Unable to start statin due to severe side effects. Restart Symbicort. DuoNeb as needed for shortness of breath and wheezing. Restart Singulair. Pulmonology consulted. Continue prednisone. Continue Protonix. Continue atenolol. Monitor vitals, adjust medications as necessary. DVT prophylaxis: [Heparin] Discussed with: [Patient and ] Anticipated discharge: [1-2 days] Anticipated discharge place: [Home] A total of [35] minutes was spent on the care of this complex patient more than 50% of the time was spent in counseling and care coordination. Patient names his Naay decision maker if he can't make decisions for himself. Patient would like to be full code.
[2020-04-11] MEDS: IPRATROPIUM-ALBUTEROL 3 ML NEB INHALATION PRN (20:17)
[2020-04-11] MEDS: SYMBICORT 80-4.5 MCG INHALER INHALATION SCH (20:20)
[2020-04-11] MEDS: HEPARIN SODIUM,PORCINE 5,000 UNIT/ML 1 ML VIAL SQ SCH (20:43)
[2020-04-11] MEDS ORDERED: PANTOPRAZOLE 40 MG TABLET PO SCH (21:00)
[2020-04-11] MEDS ORDERED: atenoloL 25 MG TAB PO SCH (21:00)
[2020-04-11] MEDS ORDERED: MONTELUKAST 10 MG TAB PO SCH (21:00)
[2020-04-12] MEDS: SYMBICORT 80-4.5 MCG INHALER INHALATION SCH (07:35)
[2020-04-12] MEDS: IPRATROPIUM-ALBUTEROL 3 ML NEB INHALATION PRN (07:35)
[2020-04-12] MEDS ORDERED: predniSONE 10 MG TAB PO SCH (09:00)
[2020-04-12] MEDS: SODIUM CHLORIDE 0.9% 1,000 ML IV SCH (09:20)
[2020-04-12] MEDS: HEPARIN SODIUM,PORCINE 5,000 UNIT/ML 1 ML VIAL SQ SCH (09:23)
--- NOTE | 2020-04-12 10:08 | ECHOF ---
Referral Reason:TIA MEASUREMENTS -------- HEIGHT: 175.3 cm WEIGHT: 115.2 kg BP: 172/90 RVIDd: 3.3 cm (< 3.3) IVSd: 1.3 cm (0.6 - 1.1) LVIDd: 3.4 cm (3.9 - 5.3) LVPWd: 1.2 cm (0.6 - 1.1) IVSs: 1.8 cm LVIDs: 2.6 cm LVPWs: 1.6 cm LA Diam: 2.9 cm (2.7 - 3.8) LAESV Index (A-L): 25.38 ml/m Ao Diam: 3.3 cm (2.0 - 3.7) AV Cusp: 2.2 cm (1.5 - 2.6) MV EXCURSION: 19.436 mm (> 18.000) MV EF SLOPE: 62 mm/s (70 - 150) EPSS: 0.7 cm MV E Scooby: 0.66 m/s MV DecT: 249 ms MV A Scooby: 0.75 m/s MV E/A Ratio: 0.88 RAP: 5.00 mmHg RVSP: 23.14 mmHg FINDINGS -------- Sinus rhythm. This was a technically adequate study. The left ventricular size is normal. There is mild concentric left ventricular hypertrophy. Overa ll left ventricular systolic function is normal with, an EF between 60 - 65 %. The right ventricle is mildly enlarged. Normal LA size by volume 22+/-6 ml/m2. The right atrium is normal in size. Interatrial and interventricular septum intact. There is mild aortic valve sclerosis. The mitral valve is normal. Mild tricuspid regurgitation present. Right ventricular systolic pressure is normal at < 35 mmHg. There is no pulmonic regurgitation present. The aortic root size is normal. IVC Not well visulized. There is no pericardial effusion. CONCLUSIONS -------- 1. The left ventricular size is normal. 2. There is mild concentric left ventricular hypertrophy. 3. Overall left ventricular systolic function is normal with, an EF between 60 - 65 %. 4. The right ventricle is mildly enlarged. 5. There is mild aortic valve sclerosis. 6. Mild tricuspid regurgitation present. 7. There is no pericardial effusion. COLLAR FELLER: Sarah Lopez RDCS
--- NOTE | 2020-04-12 10:47 | P.PN ---
Subjective Progress Note Date: 04/12/20 Principal diagnosis: Episode of confusion/altered mental status new-onset slowly improving neurological workup is in progress Right lower lobe pneumonia versus atelectasis Chronic severe persistent asthma prednisone dependent and biologic dependent Hypertension hypertensive cardiovascular disease GERD April 12 2020, patient seen eval examined during the rounds labs reviewed medications reviewed care plan discussed with the patient at length, denies any chest pain shortness of breath, patient did recall some discomfort was present in the chest but not anymore, his pro-calcitonin is normal which goes against then pneumonia or active infection, the d-dimer however is elevated, patient is being scheduled for CT EMILY to rule out pulmonary embolism, patient is also atilio eduled for EEG as well as MRI of the brain, mental status remains stable no more episodes of confusion seen This is a 70-year-old male with history of remote smoking, patient has history of chronic severe persistent asthma, he had his prednisone dependent, he wakes up this morning with confusion, patient had this episode lasted several minutes, slowly started coming back into normal status, with return of memory, currently patient feels stable denies any chest pain denies any shortness of breath chest pain, denies any wheezing, patient is a long-standing history of chronic asthma which is an ALLERGIC asthma has been on biologic for several years which however has been changed from Xolair, which was stopped several years ago as having severe arthralgia followed by placement on Fasenra which was stopped as patient felt that not helping him much, patient required significant dose of prednisone to maintain his asthma symptoms however since he is been on new Nucala from September 2019 able to decrease the prednisone to 10 mg maintenance dose, his respiratory status fairly stable, his the computed tomography scan of the head failed to reveal any significant acute changes small vessel disease has been identified, chest x-ray suggestive of right lower lobe early pneumonia/versus atelectasis, white cell count is normal Objective - Vital Signs Vital signs: Vital Signs Temp 97.7 F 04/12/20 07:58 Pulse 81 04/12/20 07:58 Resp 16 04/12/20 07:58 BP 138/75 04/12/20 07:58 Pulse Ox 94 L 04/12/20 07:58 Intake & Output 04/11/20 04/12/20 04/12/20 18:59 06:59 18:59 Intake Total 960 250 Output Total 4 Balance 956 250 Weight 115.269 kg 115.269 kg Intake: Oral 960 250 Output: Urine 4 - Exam - Constitutional General appearance: disheveled, morbidly obese, no acute distress - EENT Eyes: PERRLA Ears: bilateral: normal - Neck Carotids: bilateral: upstroke normal - Respiratory Respiratory: bilateral: CTA - Cardiovascular Rhythm: regular Heart sounds: normal: S1, S2 - Integumentary Integumentary: normal turgor - Neurologic Neurologic: CNII-XII intact - Musculoskeletal Musculoskeletal: gait normal, generalized weakness, strength equal bilaterally - Psychiatric Psychiatric: A&O x's 3, appropriate affect, intact judgment & insight - Labs CBC & Chem 7: 04/11/20 08:19 04/11/20 08:19 Labs: Abnormal Lab Results - Last 24 Hours (Table) 04/11/20 Range/Units 16:44 D-Dimer 0.65 H (<0.60) mg/L FEU Assessment and Plan Assessment: Episode of confusion/altered mental status new-onset slowly improving ne urological workup is in progress Right lower lobe pneumonia versus atelectasis Chronic severe persistent asthma prednisone dependent and biologic dependent Hypertension hypertensive cardiovascular disease GERD Plan: Agree with neurological workup We'll continue maintenance prednisone along with bronchodilator As noted above pro-calcitonin is within normal limit goes against pneumonia, however d-dimer elevated we will obtain a CT angiogram of the chest to rule out pulmonary embolism Time with Patient: Greater than 30
[2020-04-12 15:23] VITALS: BP 131/77; PULSE 60; TEMP 97.8
--- NOTE | 2020-04-12 15:32 | MR ---
EXAMINATION TYPE: MR brain wo con DATE OF EXAM: 04/12/2020 COMPARISON: CT brain 04/11/2020 HISTORY: 70-year-old male Confusion, tingling left hand, TIA TECHNIQUE: Multiplanar, multisequence images of the brain and brainstem were acquired without IV con trast. Diffusion weighted imaging is performed. FINDINGS: No evidence for acute infarction, hemorrhage, mass, mass effect, midline shift, herniation, effacemen t of basal cisterns, or extra-axial fluid collection. The ventricles and sulci are age-appropriate. A1 segment left anterior cerebral artery appears hypoplastic. Otherwise, the major intracranial flow voids are intact. T2 sagittal weighted sequences show moderate scatter right white matter foci especially in the subcor tical regions of both cerebral hemispheres, more so on the frontal lobes. A few additional scattered foci present in the right greater than left periatrial regions and the left paramedian rin. Midline structures demonstrate normal morphology. The craniocervical junction is normal. Post contrast images demonstrate no evidence of pathologic enhancement. Dural venous sinuses are pat ent. Some Trace mucosal thickening ethmoid air cells. Globes are intact. IMPRESSION: 1. No acute intracranial abnormality seen. 2. Moderate scattered burden of T2 bright white matter change likely relating to chronic small vessel ischemic disease. Chronic migraines, Lyme's disease, hypertension, and demyelinating disease are oth er differential considerations.
--- NOTE | 2020-04-12 16:04 | P.DS ---
Providers Date of admission: 04/11/20 09:35 Expected date of discharge: 04/12/20 Attending physician: Nirali Velazquez MD Consults: 04/11/20 09:27 Consult Physician Routine Consulting Provider: Jhonny Ramos Consult Reason/Comments: tia Do you want consulting provider notified?: Yes Primary care physician: [facility] Course: 62-year-old male with PMH of severe asthma, Zafar's esophagus, hiatal hernia presents the ED for acute confusion. Patient is at bedside providing majority of the history. Patient and his has been planning a vacation that was supposed to happen today. They had been packing up the camper yesterday. When his alarm clock during this morning, patient did not understand why it was ringing. He had no recollection over the planned vacation and where they were going. He also reported paresthesias in his left hand for the first time. He denied any slurred speech or difficulty swallowing. He denies any numbness, weakness or tingling of the extremities. He denied any headache, lower extremity edema, nausea or vomiting, fever or chills, cough, chest pain, palpitations, changes in urination or bowel habits. No changes in appetite or weight. He denies any dizziness. In the ED, his vital signs are stable except for mildly elevated BP. CBC was unremarkable. INR was negative. CMP showed sodium of [address] brain was negative. Patient is admitted for altered mental status, rule out CVA with neurology consultation. Neurology was consulted and stroke workup was pursued. Carotid Doppler was negative. Echocardiogram showed EF 60-65% with mild concentric LVH. MRI showed no acute stroke but moderate scattered burden of T2 bright white matter change likely related to chronic small vessel ischemic disease. EEG results were pending at the time of this note. Pulmonology was consulted for history of severe asthma and d-dimer was ordered. D-dimer was positive and CTA chest was ordered. CTA chest was pending at the time of this note. Patient was seen and examined. No acute events overnight. Patient reports complete resolution of his confusion. His is at bedside and agrees with th is. He denies any chest pain, shortness breath or palpitations. No nausea or vomiting. No fever or chills. No dizziness, slurred speech, numbness/weakness/tingling of the extremities. General: [non toxic], [no distress], [appears at stated age] Derm: [warm], [dry] Head: [atraumatic], [normocephalic], [symmetric] Eyes: [EOMI], [no lid lag], [anicteric sclera] Mouth: [no lip lesion], [mucus membranes moist] Cardiovascular: [S1S2 reg], [no murmur], [positive DP pulse bilateral], Lungs: [CTA bilateral], [no rhonchi, no rales] , [no accessory muscle use] Abdominal: [soft], [ nontender to palpation], [no guarding], [no appreciable organomegaly] Ext: [no gross muscle atrophy], [no edema], [no contractures] Neuro: [no focal neuro deficits] Psych: [Alert], [oriented], [appropriate affect] Altered mental status with left upper extremity paresthesia Elevated d-dimer Severe asthma Zafar's esophagus Hypertension Patient's altered mental status with acute onset is of unknown etiology. Plans to rule out CVA. Echocardiogram, MRI and carotid Doppler as above. EEG results pending. Telemetry monitoring. Neurochecks. Unable to start aspirin due to severe asthma. Unable to start statin due to severe side effects. Follow CTA chest. Pulmonology on board. Restart Symbicort. DuoNeb as needed for shortness of breath and wheezing. Restart Singulair. Pulmonology consulted. Continue prednisone. Continue Protonix. Continue atenolol. Monitor vitals, adjust medications as necessary. [Patient admitted for altered mental status now resolved. Workup so far negative. Possible DC home today with neurology clearance, EEG and CTA chest results.] Pertinent Studies: Brain CT, chest x-ray, carotid Doppler, echocardiogram, chest CTA, MRI, EEG Patient Condition at Discharge: Stable Plan - Discharge Summary Discharge Rx Participant: No New Discharge Prescriptions: Continue atenoloL [Atenolol] 25 mg PO HS Montelukast [Singulair] 10 mg PO HS RABEprazole SODIUM [Aciphex] 20 mg PO HS Budesonide/Formoterol Fumarate [Symbicort 80-4.5 Mcg Inhaler] 2 puff INHALATION RT-BID predniSONE 10 mg PO DAILY Ascorbic Acid [Vitamin C] 500 mg PO DAILY Mepolizumab [Nucala] 100 mg SQ Q30D Zinc 50 mg PO DAILY Magnesium 250 mg PO DAILY Ipratropium-Albuterol Nebulize [Duoneb 0.5 mg-3 mg/3 ml Soln] 3 ml INHALATION RT-BID PRN PRN Reason: Shortness Of Breath Ipratropium-Albuterol Nebulize [Duoneb 0.5 mg-3 mg/3 ml Soln] 3 ml INHALATION RT-BID Albuterol Inhaler [Ventolin Hfa Inhaler] 1 - 2 puff INHALATION RT-QID PRN PRN Reason: Shortness Of Breath Cholecalciferol (Vitamin D3) [Vitamin D3] 125 mcg PO DAILY Discharge Medication List atenoloL [Atenolol] 25 mg PO HS 03/13/15 [History] Montelukast [Singulair] 10 mg PO HS 10/25/15 [History] RABEprazole SODIUM [Aciphex] 20 mg PO HS 10/25/15 [History] Budesonide/Formoterol Fumarate [Symbicort 80-4.5 Mcg Inhaler] 2 puff INHALATION RT-BID 12/20/15 [History] predniSONE 10 mg PO DAILY 02/17/16 [History] Ascorbic Acid [Vitamin C] 500 mg PO DAILY 08/03/17 [History] Mepolizumab [Nucala] 100 mg SQ Q30D 02/19/20 [History] Albuterol Inhaler [Ventolin Hfa Inhaler] 1 - 2 puff INHALATION RT-QID PRN 04/11/20 [History] Cholecalciferol (Vitamin D3) [Vitamin D3] 125 mcg PO DAILY 04/11/20 [History] Ipratropium-Albuterol Nebulize [Duoneb 0.5 mg-3 mg/3 ml Soln] 3 ml INHALATION RT-BID 04/11/20 [History] Ipratropium-Albuterol Nebulize [Duoneb 0.5 mg-3 mg/3 ml Soln] 3 ml INHALATION RT-BID PRN 04/11/20 [History] Magnesium 250 mg PO DAILY 04/11/20 [History] Zinc 50 mg PO DAILY 04/11/20 [History] Follow up Appointment(s)/Referral(s): Jessy Chung MD [Primary Care Provider] - 1-2 days Ali,Joaquín, MD [STAFF PHYSICIAN] - 1 Week Harmony Travis MD [REFERRING] - 1 Week Activity/Diet/Wound Care/Special Instructions: Diet: Cardiac Follow-up PCP within 3 days of discharge. Follow up with pulmonology within 1 week of discharge. Take all Medications as advised. Follow-up with neurology within 1 week of discharge. Come back to the ED for slurred speech, worsening confusion, dizziness, chest pain, shortness of breath, palpitations, numbness/weakness/tingling of the extre mities. Discharge Disposition: HOME SELF-CARE
--- NOTE | 2020-04-12 16:18 | CT ---
EXAMINATION TYPE: CT angio chest DATE OF EXAM: 04/12/2020 12:38 PM COMPARISON: Chest radiograph 04/11/2020. CT chest 06/21/2015. Chest radiograph 01/19/2019. HISTORY: Elevated d-dimer. CT DLP: 525.4 mGycm Automated exposure control for dose reduction was used. CONTRAST: CTA scan of the thorax is performed with IV Contrast, patient injected with 100 mL of Isovue 370, pul monary embolism protocol. MIP images are created and reviewed. FINDINGS: LUNGS: The lungs are grossly clear, there is no concerning parenchymal mass or nodule identified. Ins trumented bibasilar linear atelectasis versus scarring. There is no pleural effusion or pneumothorax seen. The tracheobronchial tree is patent. MEDIASTINUM: There is satisfactory enhancement of the pulmonary artery and its branches, there is no CT evidence for pulmonary embolism. There are no greater than 1 cm hilar or mediastinal lymph nodes. No thoracic aortic aneurysm. No pericardial effusion is seen. OTHER: Small hiatal hernia. No adrenal nodule. Fatty liver. 2 thoracic spine vertebral body compress ion deformities are redemonstrated which demonstrate interval progression of height loss versus 2018, with mild retropulsion of the more inferior compression deformity. Additional more mild endplat e compression deformity seen in the region of the thoracal lumbar junction. Decreased osseous mineral ization. IMPRESSION: 1. No pulmonary embolism. 2. No thoracic aortic aneurysm. 3. Fatty liver. 4. Multilevel vertebral body compression deformities likely due to decreased osseous mineralization.
--- NOTE | 2020-04-12 16:44 | EEG ---
ELECTROENCEPHALOGRAM REPORT DATE OF SERVICE: 04/12/2020 CLINICAL HISTORY: This is a 70-year-old gentleman with history of hypertension and severe asthma, that was brought to the hospital on 04/11/2020 because of an episode of confusion lasting at least 30 minutes to 1-1/2 hours per . This EEG was obtained to evaluate for seizure activity and epileptiform activity. RELEVANT MEDICATION: Patient is not on any antiepileptic medication. EEG TYPE: EEG type is a 21 channel EEG was performed with video using the 10-20 electrode placement system. DESCRIPTION: Wakefulness is only obtained. During wakefulness, there is a posterior dominant rhythm of low to moderate voltage, reactive, well modulated, of 8.5-9.5 hertz activity. No physiological stage 2 sleep architecture is seen. There is diffuse EKG artifact seen. Interictal and ictal none. ACTIVATION PROCEDURE: Photic stimulation did not evoke a posterior driving response at different flash frequencies. Hyperventilation was not performed. EEG DIAGNOSIS: This is a normal EEG during awake state. CLINICAL INTERPRETATION: This is a normal awake routine EEG. There is no focal slowing noted. There is no epileptiform or seizure seen during this study. Clinical correlation is recommended. MMODL / IJN: [id number] / MTDD
== END 2020-04-12 17:07 | disposition home or self-care (01) ==
LOC: EC 07:50 → 3NCARDOBS 09:35
PROVIDERS: ADMIT Family Medicine; ATTEND Family Medicine
DX: G45.4 Transient global amnesia (principal); R41.82 Altered mental status, unspecified; R20.2 Paresthesia of skin; R79.1 Abnormal coagulation profile; J45.50 Severe persistent asthma, uncomplicated; K22.70 Barrett's esophagus without dysplasia; I11.9 Hypertensive heart disease without heart failure; R91.8 Other nonspecific abnormal finding of lung field; H26.9 Unspecified cataract; E78.5 Hyperlipidemia, unspecified; M19.90 Unspecified osteoarthritis, unspecified site; I67.82 Cerebral ischemia; R94.31 Abnormal electrocardiogram [ECG] [EKG]; K21.9 Gastro-esophageal reflux disease without esophagitis; I08.2 Rheumatic disorders of both aortic and tricuspid valves; E66.01 Morbid (severe) obesity due to excess calories; Z68.37 Body mass index [BMI] 37.0-37.9, adult; Z79.899 Other long term (current) drug therapy; Z79.51 Long term (current) use of inhaled steroids; Z79.52 Long term (current) use of systemic steroids; Z88.1 Allergy status to other antibiotic agents; Z88.8 Allergy status to other drugs, medicaments and biological substances; Z90.49 Acquired absence of other specified parts of digestive tract; Z98.890 Other specified postprocedural states; Z90.89 Acquired absence of other organs; Z91.89 Other specified personal risk factors, not elsewhere classified; Z87.891 Personal history of nicotine dependence; Z87.01 Personal history of pneumonia (recurrent); Z87.09 Personal history of other diseases of the respiratory system; Z86.010 Personal history of colon polyps; Z87.19 Personal history of other diseases of the digestive system; Z86.69 Personal history of other diseases of the nervous system and sense organs; Z82.3 Family history of stroke; Z80.0 Family history of malignant neoplasm of digestive organs; Z82.49 Family history of ischemic heart disease and other diseases of the circulatory system
CPT/HCPCS: 93005 ×2; 96372 ×2; 99285; 36415; 94640 ×4; 95819; 93306; 85379; 80053; 84443; 82607; 84484; 85025; 85610; 85730; 84145; 71046; 93880; 70450; 71275; 70551; G0378 ×2; J1644 ×2; J7512; Q9967

== ENCOUNTER 2021-01-01 09:36 | Day surgery (SDC) | payer MEDICARE, BC ==
[2020-12-30 12:00] VITALS: BMI 36.9
[~2021-01-01 09:36] MED LIST changes: -LACTATED RINGERS 1,000 ML IV ONE; -LACTATED RINGERS 1,000 ML IV SCH; -LIDOCAINE 1% (10MG/ML) FOR IV START INTRADERMA ONE; +LIDOCAINE 1% (10MG/ML) FOR IV START INTRADERMA PRN; -MIDAZOLAM 2 MG/2 ML VIAL ONE; -PROPOFOL 10 MG/ML 20 ML VIAL IV ONE
[2021-01-01] MEDS: LACTATED RINGERS 1,000 ML IV SCH ×2 (10:04→10:28)
[2021-01-01 10:08] VITALS: TEMP 97.4
[2021-01-01 10:08] LABS: Glucose,Whole Blood 108 mg/dL (75-99)
[2021-01-01] MEDS ORDERED: PROPOFOL 10 MG/ML 20 ML VIAL IV ONE (10:30)
--- NOTE | 2021-01-01 10:51 | P.PCN ---
Date of Procedure: 01/01/21 Procedure(s) Performed: BRIEF HISTORY: Patient is a 70-year-old pleasant male scheduled for an elective colonoscopy as a part of screening for colorectal neoplasia. His last colonoscopy was 10 years ago. PROCEDURE PERFORMED: Colonoscopy snare polypectomy PREOPERATIVE DIAGNOSIS: Screening for colon cancer. IV sedation per Anesthesia. PROCEDURE: After informed consent was obtained, the patient, was brought into the endoscopy unit. IV sedation was administered by Anesthesia under continuous monitoring. Digital rectal examination was normal. Initially the Olympus CF-160 flexible video colonoscope was then inserted in the rectum, gradually advanced into the cecum without any difficulty. Careful examination was performed as the scope was gradually being withdrawn. Ileocecal valve and the appendiceal orifice were visualized and appeared normal. Prep was excellent. Mucosa of the cecum, appeared normal. In the ascending colon there was a 1 cm 2 sessile polyps removed by snare polypectomy. Rest of the ascending colon, transverse colon, appeared normal. In the descending colon there was a 1.57 with a polyp removed by snare polypectomy. In the sigmoid colon there was a 5 mm polyp removed by snare polypectomy. The rectum appeared normal. Retroflexion was performed in the rectum and no lesions were seen. The patient tolerated the procedure well. IMPRESSION: 1 cm 2 ascending colon polyp status post polypectomy 1 cm descending colon polyp status post polypectomy 5 mm sigmoid: Polyp status post snare polypectomy. RECOMMENDATIONS: Findings of this examination were discussed with the patient as well as his family. He was advised to follow with the biopsy results. If the biopsy shows an adenoma he can have a repeat colonoscopy in 3 years.
[2021-01-01 11:04] VITALS: RESP 16
[2021-01-01 11:30] VITALS: BP 153/83; PULSE 60
== END 2021-01-01 11:37 | disposition home or self-care (01) ==
LOC: ORWHC2ENDO 09:36
PROVIDERS: ATTEND Internal Medicine Gastroenterology
DX: Z12.11 Encounter for screening for malignant neoplasm of colon (principal); D12.2 Benign neoplasm of ascending colon; D12.4 Benign neoplasm of descending colon; D12.5 Benign neoplasm of sigmoid colon; I10 Essential (primary) hypertension; E78.5 Hyperlipidemia, unspecified; J45.909 Unspecified asthma, uncomplicated; Z79.52 Long term (current) use of systemic steroids; M19.90 Unspecified osteoarthritis, unspecified site; K21.9 Gastro-esophageal reflux disease without esophagitis; Z79.82 Long term (current) use of aspirin; Z79.899 Other long term (current) drug therapy; Z88.1 Allergy status to other antibiotic agents; Z88.8 Allergy status to other drugs, medicaments and biological substances
CPT/HCPCS: 88305; 45385; J2704

== ENCOUNTER → 2021-01-03 | Outpatient (CLI) | payer MEDICARE, BC ==
--- NOTE | 2021-01-03 14:59 | XR ---
EXAMINATION TYPE: XR chest 2V DATE OF EXAM: 01/03/2021 COMPARISON: 04/11/2020 HISTORY: Short of breath TECHNIQUE: FINDINGS: Heart and mediastinum are normal. Lungs are clear of consolidation. There are no hilar mass es. Costophrenic angles are clear. Bony thorax is intact. There is some small linear density at the r ight posterior lung base. IMPRESSION: Mild subsegmental atelectasis right lung base not significantly different than old exam. Normal heart.
== END | disposition home or self-care (01) ==
LOC: RADXRMAIN 13:16
PROVIDERS: ATTEND Internal Medicine Sleep Medicine
DX: J98.11 Atelectasis (principal)
CPT/HCPCS: 71046

== ENCOUNTER 2021-07-31 09:42 | Emergency (ER) | payer MEDICARE, BC ==
[2021-07-31] MEDS ORDERED: ACETAMINOPHEN TAB 325 MG TAB PO STA (09:59)
--- NOTE | 2021-07-31 10:30 | XR ---
EXAMINATION TYPE: XR chest 2V DATE OF EXAM: 07/31/2021 COMPARISON: Chest x-ray January 03, 2021. CTA chest April 12, 2020 HISTORY: Upper respiratory symptoms for 4 days. TECHNIQUE: Frontal and lateral views of the chest are obtained. FINDINGS: There is increasing opacity in the right lower lung appears to localize to lower lobe on l ateral view. Left lung is clear. The cardiac silhouette size is stable and within normal limits. Mild to moderate multilevel chronic compression type fracture deformities in the thoracic spine at 2 leve ls, interval new third one noted roughly T10 level on lateral view. IMPRESSION: New left lower lobe acute infiltrate and/or atelectasis on background focal scarring.
--- NOTE | 2021-07-31 11:18 | ED ---
URI HPI - General Chief Complaint: Upper Respiratory Infection Stated Complaint: Covid +, SOB Time Seen by Provider: 07/31/21 09:58 Source: patient, RN notes reviewed Mode of arrival: ambulatory Limitations: no limitations - History of Present Illness Initial Comments: Patient is a 71-year-old male that presents to the emergency department complaining of Covid like symptoms starting on Wednesday. Patient notes that he did test positive but does not have the results with him. Patient denied any severe symptoms. He notes he does have a mild fever some shortness of breath. Patient was otherwise well-appearing. Patient denied any chest pain headache nausea vomiting diarrhea constipation fatigue chills. - Related Data Home Medications Medication Instructions Recorded Confirmed atenoloL 25 mg PO BID 03/13/15 07/31/21 RABEprazole SODIUM [Aciphex] 20 mg PO BID 10/25/15 07/31/21 Ipratropium-Albuterol Nebulize 3 ml INHALATION RT-BID 04/11/20 07/31/21 [Duoneb 0.5 mg-3 mg/3 ml Soln] Budesonide-Formot 160-4.5 Mcg 2 puff INHALATION RT-BID 07/31/21 07/31/21 [Symbicort 160-4.5 Mcg Inhaler] Mepolizumab [Nucala] 100 mg SQ QMONTHLY 07/31/21 07/31/21 Mometasone Furoate [Nasonex Nasal 1 - 2 spray EA NOSTRIL DAILY 07/31/21 07/31/21 [place]] Montelukast [Singulair] 10 mg PO HS 07/31/21 07/31/21 predniSONE See Taper PO DAILY 07/31/21 07/31/21 Allergies Allergy/AdvReac Type Severity Reaction Status Date / Time levofloxacin Allergy Rash/Hives Verified 07/31/21 11:00 atorvastatin calcium AdvReac MUSCLE PAIN Verified 07/31/21 11:00 [From Lipitor] formoterol [From Dulera] AdvReac Rapid Verified 07/31/21 11:00 Heart Rate mometasone furoate AdvReac Rapid Verified 07/31/21 11:00 [From Dulera] Heart Rate Lwcosek-RTY-AcS Reductase AdvReac muscle pain Verified 07/31/21 11:00 Inhibitor [Rlntmqq-Lvg-Muw Reductase Inhibitor] Review of Systems ROS Statement: Those systems with pertinent positive or pertinent negative responses have been documented in the HPI. ROS Other: All systems not noted in ROS Statement are negative. Past Medical History Past Medical History: Asthma, Eye Disorder, Hyperlipidemia, Hypertension, Osteoarthritis (OA), Pneumonia, Respiratory Disorder Additional Past Medical History / Comment(s): Asthma-steroid dependent, bronchitis, unable to tolerate statins, hiatal hernia, Zafar's esophagus, gastric/colon benign polyps, starting of bilateral cataracts, occasional back pain. History of Any Multi-Drug Resistant Organisms: None Reported Past Surgical History: Appendectomy, Bladder Surgery, Hernia Repair, Orthopedic Surgery, Tonsillectomy Additional Past Surgical History / Comment(s): egds, colonoscopies, cystoscopies-had bladder "reshaped", R inguinal hernia repair, bilateral thumb basal joint surgeris, bilateral carpal tunnel releases, L wrist ganglion cystectomy Past Anesthesia/Blood Transfusion Reactions: Postoperative Nausea & Vomiting (PONV) Additional Past Anesthesia/Blood Transfusion Reaction / Comment(s): Muscle cramps in abdomin post op Past Psychological History: No Psychological Hx Reported Smoking Status: Former smoker Past Alcohol Use History: None Reported Past Drug Use History: None Reported - Past Family History Father Family Medical History: Cancer Additional Family Medical History / Comment(s): LIVER. Father is . Mother Family Medical History: Hypertension Additional Family Medical History / Comment(s): Mother is . General Exam Limitations: no limitations General appearance: alert, in no apparent distress, obese Head exam: Present: atraumatic, normocephalic, normal inspection Eye exam: Present: normal appearance, PERRL, EOMI. Absent: scleral icterus, conjunctival injection, periorbital swelling ENT exam: Present: normal exam, mucous membranes moist Neck exam: Present: normal inspection Respiratory exam: Present: normal lung sounds bilaterally. Absent: respiratory distress, wheezes, rales, rhonchi, stridor Cardiovascular Exam: Present: regular rate, normal rhythm, normal heart sounds. Absent: systolic murmur, diastolic murmur, rubs, gallop, clicks Extremities exam: Present: normal inspection, full ROM, normal capillary refill. Absent: tenderness, pedal edema, joint swelling, calf tenderness Neurological exam: Present: alert, oriented X3 Psychiatric exam: Present: normal affect, normal mood Skin exam: Present: warm, dry, intact, normal color. Absent: rash Course Vital Signs 07/31/21 09:49 Temperature 99.8 F H Pulse Rate 96 Respiratory 20 Rate Blood Pressure 106/71 O2 Sat by Pulse 95 Oximetry Medical Decision Making - Medical Decision Making 61-year-old male complaining of Covid like symptoms for the past 4 days. Covid test, chest x-ray ordered. Covid test positive. Patient does meet criteria for monoclonal antibodies and wishes to undergo infusion. Patient is agreeable to discharge home after infusion. 650 mg of Tylenol ordered for mild fever. Case discussed with Dr. Ralph, patient discharge home. - Lab Data Lab Results 07/31/21 Range/Units 10:04 Coronavirus (PCR) Detected A (Not Detectd) - Radiology Data Radiology results: report reviewed, image reviewed Chest x-ray: Lower lobe acute infiltrate and/or atelectasis on background focal scarring. Disposition Clinical Impression: COVID Disposition: HOME SELF-CARE Condition: Stable Instructions (If sedation given, give patient instructions): Coronavirus Disease 2019 (COVID-19) Additional Instructions: Please return to the Emergency Department if symptoms worsen or any other concerns. Is patient prescribed a controlled substance at d/c from ED?: No Referrals: Jessy Chung MD [Primary Care Provider] - 1-2 days Time of Disposition: 11:18
[2021-07-31] MEDS ORDERED: SOTROVIMAB (EUA) 500 MG in SODIUM CHLORIDE 0.9% 100 ML IVPB ONE (11:45)
[2021-07-31] MEDS ORDERED: SODIUM CHLORIDE 0.9% 50 ML IVPB ONE (11:45)
[2021-07-31 12:50] VITALS: TEMP 98.4
[2021-07-31 13:38] VITALS: BP 119/76; PULSE 73; RESP 20
== END 2021-07-31 13:35 | disposition home or self-care (01) ==
LOC: EC 09:42
DX: U07.1 COVID-19 (principal); J45.909 Unspecified asthma, uncomplicated; E78.5 Hyperlipidemia, unspecified; I10 Essential (primary) hypertension; M19.90 Unspecified osteoarthritis, unspecified site; Z88.1 Allergy status to other antibiotic agents; Z90.49 Acquired absence of other specified parts of digestive tract; Z90.89 Acquired absence of other organs; Z87.891 Personal history of nicotine dependence
CPT/HCPCS: 99285; 87635; 71046; Q0247

== ENCOUNTER 2021-08-04 18:02 | Inpatient (IN) | payer MEDICARE, BC ==
[2021-08-04] MEDS ORDERED: DEXAMETHASONE SOD PHOSPHATE 10 MG/ML 1 ML VIAL IVP STA (18:35)
[2021-08-04 18:57] LABS: Basophils % (A) 0 %; Eosinophils # (A) 0.1 k/uL (0-0.7); Eosinophils % (A) 1 %; HCT 46.9 % (39.0-53.0); HGB 16.4 gm/dL (13.0-17.5); Lymphocytes # (A) 0.4 k/uL (1.0-4.8); Lymphocytes % (A) 9 %; MCH 32.8 pg (25.0-35.0); MCHC 34.9 g/dL (31.0-37.0); MCV 93.9 fL (80.0-100.0); Mean Platelet Volume 8.2; Monocytes # (A) 0.2 k/uL (0-1.0); Monocytes % (A) 5 %; Neutrophils # (A) 3.9 k/uL (1.3-7.7); Neutrophils % (A) 84 %; Platelet Count 211 k/uL (150-450); RBC 4.99 m/uL (4.30-5.90); RDW 13.1 % (11.5-15.5); WBC 4.6 k/uL (3.8-10.6)
[2021-08-04 19:06] LABS: INR 0.9 (<1.2); Partial Thromboplastin Time 23.3 sec (22.0-30.0); Prothrombin Time 9.7 sec (9.0-12.0)
[2021-08-04 19:09] LABS: Albumin 3.8 g/dL (3.5-5.0); C Reactive Protein 6.9 mg/dL (<1.0); Calcium 9.2 mg/dL (8.4-10.2); Potassium 5.2 mmol/L (3.5-5.1); Total Bilirubin 0.9 mg/dL (0.2-1.3)
--- NOTE | 2021-08-04 19:09 | XR ---
EXAMINATION TYPE: XR chest 1V portable DATE OF EXAM: 08/04/2021 COMPARISON: 07/31/2021 HISTORY: Short of breath TECHNIQUE: Single view FINDINGS: Heart is normal. There is some mild pulmonary interstitial infiltrate in the mid lung field s. There is no heart failure. Costophrenic angles are clear. IMPRESSION: There is some minimal interstitial infiltrate increased compared to recent exam. Normal h eart.
[2021-08-04] MEDS ORDERED: SODIUM CHLORIDE 0.9% 1,000 ML IV STA ×2 (19:11→21:53)
--- NOTE | 2021-08-04 19:52 | ED ---
SOB HPI - General Chief Complaint: Shortness of Breath Stated Complaint: covid/revisit-sob/cough Time Seen by Provider: 08/04/21 18:27 Source: patient, RN notes reviewed Mode of arrival: wheelchair Limitations: no limitations - History of Present Illness Initial Comments: Patient is a 71-year-old male that presents to the emergency department with worsening shortness of breath. Patient notes he is Covid-positive an argue received monoclonal antibodies on 07/31/21. Patient notes that he does take at home DuoNeb scan Symbicort for chronic asthma. Patient notes that he is agreeable with staying in the hospital if needed. He was otherwise well-appe aring. He denied any other issues or complaints except for the shortness of breath. - Related Data Home Medications Medication Instructions Recorded Confirmed atenoloL 25 mg PO BID 03/13/15 07/31/21 RABEprazole SODIUM [Aciphex] 20 mg PO BID 10/25/15 07/31/21 Ipratropium-Albuterol Nebulize 3 ml INHALATION RT-BID 04/11/20 07/31/21 [Duoneb 0.5 mg-3 mg/3 ml Soln] Budesonide-Formot 160-4.5 Mcg 2 puff INHALATION RT-BID 07/31/21 07/31/21 [Symbicort 160-4.5 Mcg Inhaler] Mepolizumab [Nucala] 100 mg SQ QMONTHLY 07/31/21 07/31/21 Mometasone Furoate [Nasonex Nasal 1 - 2 spray EA NOSTRIL DAILY 07/31/21 07/31/21 [place]] Montelukast [Singulair] 10 mg PO HS 07/31/21 07/31/21 predniSONE See Taper PO DAILY 07/31/21 07/31/21 Allergies Allergy/AdvReac Type Severity Reaction Status Date / Time levofloxacin Allergy Rash/Hives Verified 08/04/21 18:23 atorvastatin calcium AdvReac MUSCLE PAIN Verified 08/04/21 18:23 [From Lipitor] formoterol [From Dulera] AdvReac Rapid Verified 08/04/21 18:23 Heart Rate mometasone furoate AdvReac Rapid Verified 08/04/21 18:23 [From Dulera] Heart Rate Ulmtbuh-ZQU-QdI Reductase AdvReac muscle pain Verified 08/04/21 18:23 Inhibitor [Fcwgkkc-Ola-Nkp Reductase Inhibitor] Review of Systems ROS Statement: Those systems with pertinent positive or pertinent negative responses have been documented in the HPI. ROS Other: All systems not noted in ROS Statement are negative. Past Medical History Past Medical History: Asthma, Eye Disorder, Hyperlipidemia, Hypertension, Osteoarthritis (OA), Pneumonia, Respiratory Disorder Additional Past Medical History / Comment(s): Asthma-steroid dependent, bronchi tis, unable to tolerate statins, hiatal hernia, Zafar's esophagus, gastric/colon benign polyps, starting of bilateral cataracts, occasional back pain. History of Any Multi-Drug Resistant Organisms: None Reported Past Surgical History: Appendectomy, Bladder Surgery, Hernia Repair, Orthopedic Surgery, Tonsillectomy Additional Past Surgical History / Comment(s): egds, colonoscopies, cystoscopies-had bladder "reshaped", R inguinal hernia repair, bilateral thumb basal joint surgeris, bilateral carpal tunnel releases, L wrist ganglion cystectomy Past Anesthesia/Blood Transfusion Reactions: Postoperative Nausea & Vomiting (PONV) Additional Past Anesthesia/Blood Transfusion Reaction / Comment(s): Muscle cramps in abdomin post op Past Psychological History: No Psychological Hx Reported Smoking Status: Former smoker Past Alcohol Use History: None Reported Past Drug Use History: None Reported - Past Family History Father Family Medical History: Cancer Additional Family Medical History / Comment(s): LIVER. Father is . Mother Family Medical History: Hypertension Additional Family Medical History / Comment(s): Mother is . General Exam Limitations: no limitations General appearance: alert, in no apparent distress, obese (Morbid) Head exam: Present: atraumatic, normocephalic, normal inspection Eye exam: Present: normal appearance, PERRL, EOMI. Absent: scleral icterus, conjunctival injection, periorbital swelling ENT exam: Present: normal exam, mucous membranes moist Neck exam: Present: normal inspection Respiratory exam: Present: normal lung sounds bilaterally. Absent: respiratory distress, wheezes, rales, rhonchi, stridor Cardiovascular Exam: Present: regular rate, normal rhythm, normal heart sounds. Absent: systolic murmur, diastolic murmur, rubs, gallop, clicks GI/Abdominal exam: Present: soft, normal bowel sounds. Absent: distended, tenderness, guarding, rebound, rigid Extremities exam: Present: normal inspection, full ROM, normal capillary refill. Absent: tenderness, pedal edema, joint swelling, calf tenderness Neurological exam: Present: alert, oriented X3 Psychiatric exam: Present: normal affect, normal mood Skin exam: Present: warm, dry, intact, normal color. Absent: rash Course Vital Signs 08/04/21 18:23 Temperature 99.3 F Pulse Rate 80 Respiratory 20 Rate Blood Pressure 136/74 O2 Sat by Pulse 92 L Oximetry Medical Decision Making - Medical Decision Making 71-year-old male with increasing shortness of breath Covid-positive artery received monoclonal antibodies. Labs, EKG, quality assurance monitor body, chest x-ray ordered. Oxygen saturation room air was 90-91% while sitting in bed, upon standing up patient dropped to the mid 80s. Labs: CBC unremarkable, CMP consistent with Covid infection with elevated LDH and C-reactive protein. Chest x-ray: There is some minimal interstitial infiltrate increased compared to recent exam. Normal heart. 10 mg of Decadron ordered. Case discussed with Dr. Gallegos, patient will be admitted for COVID-[address] Ruth was consulted and will accept the admit. - Lab Data Result diagrams: 08/04/21 18:39 08/04/21 18:39 Lab Results 08/04/21 08/04/21 08/04/21 Range/Units 18:39 18:39 18:39 WBC 4.6 (3.8-10.6) k/uL RBC 4.99 (4.30-5.90) m/uL Hgb 16.4 (13.0-17.5) gm/dL Hct 46.9 (39.0-53.0) % MCV 93.9 (80.0-100.0) fL MCH 32.8 (25.0-35.0) pg MCHC 34.9 (31.0-37.0) g/dL RDW 13.1 (11.5-15.5) % Plt Count 211 (150-450) k/uL MPV 8.2 Neutrophils % 84 % Lymphocytes % 9 % Monocytes % 5 % Eosinophils % 1 % Basophils % 0 % Neutrophils # 3.9 (1.3-7.7) k/uL Lymphocytes # 0.4 L (1.0-4.8) k/uL Monocytes # 0.2 (0-1.0) k/uL Eosinophils # 0.1 (0-0.7) k/uL Basophils # 0.0 (0-0.2) k/uL PT 9.7 (9.0-12.0) sec INR 0.9 (<1.2) APTT 23.3 (22.0-30.0) sec Sodium 132 L (137-145) mmol/L Potassium 5.2 H (3.5-5.1) mmol/L Chloride 99 (98-107) mmol/L Carbon Dioxide 21 L (22-30) mmol/L Anion Gap 12 mmol/L BUN 19 (9-20) mg/dL Creatinine 1.00 (0.66-1.25) mg/dL Est GFR (CKD-EPI)AfAm 88 (>60 ml/min/1.73 sqM) Est GFR (CKD-EPI)NonAf 77 (>60 ml/min/1.73 sqM) Glucose 154 H (74-99) mg/dL Plasma Lactic Acid Skip (0.7-2.0) mmol/L Calcium 9.2 (8.4-10.2) mg/dL Magnesium 2.0 (1.6-2.3) mg/dL Total Bilirubin 0.9 (0.2-1.3) mg/dL AST 87 H (17-59) U/L ALT 91 H (4-49) U/L Alkaline Phosphatase 31 L (38-126) U/L Lactate Dehydrogenase 1108 H (313-618) U/L C-Reactive Protein 6.9 H (<1.0) mg/dL Total Protein 7.0 (6.3-8.2) g/dL Albumin 3.8 (3.5-5.0) g/dL 08/04/21 Range/Units 18:39 WBC (3.8-10.6) k/uL RBC (4.30-5.90) m/uL Hgb (13.0-17.5) gm/dL Hct (39.0-53.0) % MCV (80.0-100.0) fL MCH (25.0-35.0) pg MCHC (31.0-37.0) g/dL RDW (11.5-15.5) % Plt Count (150-450) k/uL MPV Neutrophils % % Lymphocytes % % Monocytes % % Eosinophils % % Basophils % % Neutrophils # (1.3-7.7) k/uL Lymphocytes # (1.0-4.8) k/uL Monocytes # (0-1.0) k/uL Eosinophils # (0-0.7) k/uL Basophils # (0-0.2) k/uL PT (9.0-12.0) sec INR (<1.2) APTT (22.0-30.0) sec Sodium (137-145) mmol/L Potassium (3.5-5.1) mmol/L Chloride (98-107) mmol/L Carbon Dioxide (22-30) mmol/L Anion Gap mmol/L BUN (9-20) mg/dL Creatinine (0.66-1.25) mg/dL Est GFR (CKD-EPI)AfAm (>60 ml/min/1.73 sqM) Est GFR (CKD-EPI)NonAf (>60 ml/min/1.73 sqM) Glucose (74-99) mg/dL Plasma Lactic Acid Skip 2.2 H* (0.7-2.0) mmol/L Calcium (8.4-10.2) mg/dL Magnesium (1.6-2.3) mg/dL Total Bilirubin (0.2-1.3) mg/dL AST (17-59) U/L ALT (4-49) U/L Alkaline Phosphatase (38-126) U/L Lactate Dehydrogenase (313-618) U/L C-Reactive Protein (<1.0) mg/dL Total Protein (6.3-8.2) g/dL Albumin (3.5-5.0) g/dL - EKG Data -: EKG Interpreted by Mo EKG shows normal: sinus rhythm Rate: normal EKG Comments: Ventricular rate 73 bpm, ND interval 150 ms, QRS duration 96 ms, QTC 414 ms, PRT axes , normal sinus rhythm, nonspecific ST and T-wave abnormality, abnormal ECG. Disposition Clinical Impression: Pneumonia due to COVID-19 virus, Hypoxia Disposition: HOME SELF-CARE Condition: Stable Is patient prescribed a controlled substance at d/c from ED?: No Referrals: Jessy Chung MD [Primary Care Provider] - 1-2 days Time of Disposition: :21
[2021-08-04] MEDS ORDERED: IPRATROPIUM-ALBUTEROL 3 ML NEB INHALATION PRN (21:49)
[2021-08-04] MEDS ORDERED: NALOXONE 0.4 MG/ML 1 ML VIAL IV PRN (22:35)
[2021-08-04] MEDS ORDERED: SODIUM CHLORIDE 0.9% 1,000 ML IV SCH (22:45)
--- NOTE | 2021-08-04 23:09 | P.HPIM ---
History of Present Illness H&P Date: 08/04/21 The patient is a 71-year-old male with a PMH of COPD and hypertension who presented to the emergency room with complaints of cough and gradually worsening shortness of breath. The patient reports that his symptoms started last Wednesday and have gradually progressed. He was seen in the emergency room on 07/31, was diagnosed with COVID and had received monoclonal antibodies and was discharged home. He reports nonproductive cough, diffuse body aches, anorexia, occasional nausea without vomiting, and feeling fatigued. Chest x-ray was consistent with atypical pneumonia with laboratory evaluation remarkable for lactic acid of 2.2, potassium 5.2, sodium 132, LDH 1108, AST 87, ALT 91. He was noted to be hypoxic with SpO2 92% on 2 L NC oxygen. He denied chest discomfort, abdominal pain, diarrhea, headaches, weakness, numbness, tingling. Review of systems: Pertinent positives and negatives as discussed in HPI, a complete review of systems was performed and all other systems are negative. Physical examination: General: non toxic, no distress, appears at stated age, normal weight Derm: no unusual rashes/lesions no unusual ecchymoses, warm, dry Head: atraumatic, normocephalic, symmetric Eyes: EOMI, no lid lag, anicteric sclera, pupils equal round reactive to light ENT: Nose and ears atraumatic, no thrush, no pharyngeal erythema Neck: No thyromegaly, no cervical lymphadenopathy, trachea midline, supple Mouth: no lip lesion, mucus membranes moist Cardiovascular: S1S2 reg, no murmur, positive posterior tibial pulse bilateral, no edema, capillary refill less than 2 seconds Lungs: Scattered rhonchi, no wheezing, no accessory muscle use Abdominal: soft, nontender to palpation, no guarding, no appreciable organomegaly, normal bowel sounds Ext: no gross muscle atrophy, muscle strength 5 out of 5 in all 4 extremities grossly, no contractures, Neuro: CN II-XI grossly intact, light touch intact all 4 extremities, finger to nose within normal limits, Psych: Alert, oriented, appropriate affect Assessment/plan Acute COVID-19 pneumonia with acute hypoxic respiratory failure -Supplemental oxygen -Pulmonary consulted -Continue home inhalers -Monitor inflammatory markers Lactic acidosis -Monitor for resolution -IVFs Hyperkalemia, Hyponatremia -Likely secondary to dehydration -C/w IVFs -Monitor BMP Chronic conditions: HTN -C/w home meds DVT prophylaxis -Lovenox The patient is admitted with an anticipated greater than 2 midnight stay for evaluation of COVID 19 CODE STATUS: Full Code Discussed with: Patient Anticipated discharge date: Unclear Anticipated discharge place: Home Past Medical History Past Medical History: Asthma, Eye Disorder, Hyperlipidemia, Hypertension, Osteoarthritis (OA), Pneumonia, Respiratory Disorder Additional Past Medical History / Comment(s): Asthma-steroid dependent, bronchit is, unable to tolerate statins, hiatal hernia, Zafar's esophagus, gastric/colon benign polyps, starting of bilateral cataracts, occasional back pain. History of Any Multi-Drug Resistant Organisms: None Reported Past Surgical History: Appendectomy, Bladder Surgery, Hernia Repair, Orthopedic Surgery, Tonsillectomy Additional Past Surgical History / Comment(s): egds, colonoscopies, cystoscopies-had bladder "reshaped", R inguinal hernia repair, bilateral thumb basal joint surgeris, bilateral carpal tunnel releases, L wrist ganglion cystectomy Past Anesthesia/Blood Transfusion Reactions: Postoperative Nausea & Vomiting (PONV) Additional Past Anesthesia/Blood Transfusion Reaction / Comment(s): Muscle cramps in abdomin post op Past Psychological History: No Psychological Hx Reported Smoking Status: Former smoker Past Alcohol Use History: None Reported Past Drug Use History: None Reported - Past Family History Father Family Medical History: Cancer Additional Family Medical History / Comment(s): LIVER. Father is . Mother Family Medical History: Hypertension Additional Family Medical History / Comment(s): Mother is . Medications and Allergies Home Medications Medication Instructions Recorded Confirmed Type atenoloL 25 mg PO BID 03/13/15 08/04/21 History RABEprazole SODIUM [Aciphex] 20 mg PO HS 10/25/15 08/04/21 History Ipratropium-Albuterol Nebulize 3 ml INHALATION RT-QID PRN 04/11/20 08/04/21 History [Duoneb 0.5 mg-3 mg/3 ml Soln] Budesonide-Formot 160-4.5 Mcg 1 puff INHALATION RT-BID 07/31/21 08/04/21 History [Symbicort 160-4.5 Mcg Inhaler] Mepolizumab [Nucala] 100 mg SQ QMONTHLY 07/31/21 08/04/21 History Mometasone Furoate [Nasonex Nasal 1 - 2 spray EA NOSTRIL DAILY 07/31/21 08/04/21 History [place]] Montelukast [Singulair] 10 mg PO HS 07/31/21 08/04/21 History predniSONE See Taper PO DAILY 07/31/21 08/04/21 History Allergies Allergy/AdvReac Type Severity Reaction Status Date / Time levofloxacin Allergy Rash/Hives Verified 08/04/21 20:44 atorvastatin calcium AdvReac MUSCLE PAIN Verified 08/04/21 20:44 [From Lipitor] formoterol [From Dulera] AdvReac Rapid Verified 08/04/21 20:44 Heart Rate mometasone furoate AdvReac Rapid Verified 08/04/21 20:44 [From Dulera] Heart Rate Wdebzyf-TVZ-PuE Reductase AdvReac muscle pain Verified 08/04/21 20:44 Inhibitor [Yrgiaux-Gtv-Qik Reductase Inhibitor] Physical Exam Vitals: Vital Signs Temp Pulse Resp BP Pulse Ox 08/04/21 18:23 99.3 F 80 20 136/74 92 L Intake and Output 08/04/21 08/04/21 08/04/21 06:59 14:59 22:59 Other: Weight 115.666 kg Results CBC & Chem 7: 08/04/21 18:39 08/04/21 18:39 Labs: Abnormal Lab Results - Last 24 Hours (Table) 08/04/21 08/04/21 08/04/21 Range/Units 18:39 18:39 18:39 Lymphocytes # 0.4 L (1.0-4.8) k/uL Sodium 132 L (137-145) mmol/L Potassium 5.2 H (3.5-5.1) mmol/L Carbon Dioxide 21 L (22-30) mmol/L Glucose 154 H (74-99) mg/dL Plasma Lactic Acid Skip 2.2 H* (0.7-2.0) mmol/L AST 87 H (17-59) U/L ALT 91 H (4-49) U/L Alkaline Phosphatase 31 L (38-126) U/L Lactate Dehydrogenase 1108 H (313-618) U/L C-Reactive Protein 6.9 H (<1.0) mg/dL
[2021-08-05] MEDS ORDERED: ALBUTEROL HFA INHALER INHALATION PRN (04:10)
[2021-08-05] MEDS: ALBUTEROL HFA INHALER INHALATION PRN ×3 (07:46→19:45)
[2021-08-05] MEDS: SYMBICORT 160-4.5 MCG INHALER INHALATION SCH ×2 (07:46→19:45)
[2021-08-05] MEDS: ENOXAPARIN 40 MG/0.4 ML SYRINGE SQ SCH (08:20)
[2021-08-05] MEDS: atenoloL 25 MG TAB PO SCH ×2 (08:20→19:58)
[2021-08-05] MEDS ORDERED: FLUTICASONE 50MCG/SPRAY NASAL 16GM EA NOSTRIL SCH (09:00)
[2021-08-05] MEDS ORDERED: predniSONE 10 MG TAB PO SCH (09:00)
[2021-08-05 11:50] LABS: African American GFR (CKD) 100.8 (60.0-200.0); Anion Gap 15.5 mmol/L (10.00-18.00); BUN/Creat Ratio 17.19 Ratio (12.00-20.00); Blood Urea Nitrogen 15.4 mg/dL (9.0-27.0); Calcium 8.9 mg/dL (8.7-10.3); Potassium 4.4 mmol/L (3.5-5.5)
--- NOTE | 2021-08-05 12:56 | P.PN ---
Subjective Principal diagnosis: COVID-19 pneumonitis with acute hypoxic respiratory failure Chart was reviewed patient was seen and examined. 71-year-old male with history of asthma and hypertension, admitted with progressively worsening respiratory symptoms shortness of breath nonproductive dry cough and body aches chills. This started about 1 week prior to admission. Diagnosed with COVID-19 on 07/31/21 and MRSA Department and received Regeneron. Follow respiratory symptoms continued to worsen and he returned to MRSA Department last night. A chest x-ray showing bilateral pneumonia. She was placed on oxygen due to shortness of breath and oxygen saturation in low 90s. Currently he is saturating in the 90s, he does not have any respiratory distress or subjective feeling of shortness of breath. He is currently 4 L nasal cannula . Denies any chest pain nausea vomiting abdominal pain. Objective - Vital Signs Vital signs: Vital Signs Temp 97.3 F L 08/05/21 11:07 Pulse 72 08/05/21 11:07 Resp 20 08/05/21 11:07 BP 147/87 08/05/21 11:07 Pulse Ox 95 08/05/21 11:27 Intake & Output 08/04/21 08/05/21 08/05/21 18:59 06:59 18:59 Weight 115.666 kg 115.666 kg - Exam General: Awake alert oriented 3, not in distress Head and neck: No facial asymmetry, pupils are round and reactive to light conjunctiva clear oropharyngeal mucosa is clear of any lesions no neck masses no JVD Lungs: Breathing is nonlabored, normal breath sounds, good basilar inspiratory crackles, no wheezing or rhonchi Cardiovascular: Regular rhythm and rate S1-S2 Abdomen: Bowel sounds present throughout, soft, nondistended nontender no flank tenderness no organomegaly Extremities: Trace pedal edema without any calf tenderness warmth or cyanosis, DP pulses present bilateral Neurological: No asterixis Muscular skeletal, no joint swelling or deformities or clubbing - Labs CBC & Chem 7: 08/04/21 18:39 08/05/21 06:00 Labs: Abnormal Lab Results - Last 24 Hours (Table) 08/04/21 08/04/21 08/04/21 Range/Units 18:39 18:39 18:39 Lymphocytes # 0.4 L (1.0-4.8) k/uL Sodium 132 L (137-145) mmol/L Potassium 5.2 H (3.5-5.1) mmol/L Carbon Dioxide 21 L (22-30) mmol/L Glucose 154 H (74-99) mg/dL Plasma Lactic Acid Skip 2.2 H* (0.7-2.0) mmol/L AST 87 H (17-59) U/L ALT 91 H (4-49) U/L Alkaline Phosphatase 31 L (38-126) U/L Lactate Dehydrogenase 1108 H (313-618) U/L C-Reactive Protein 6.9 H (<1.0) mg/dL Procalcitonin (0.02-0.09) ng/mL 08/04/21 08/05/21 Range/Units 18:39 06:00 Lymphocytes # (1.0-4.8) k/uL Sodium (137-145) mmol/L Potassium (3.5-5.1) mmol/L Carbon Dioxide 19.0 L (22-30) mmol/L Glucose 132 H (74-99) mg/dL Plasma Lactic Acid Skip (0.7-2.0) mmol/L AST (17-59) U/L ALT (4-49) U/L Alkaline Phosphatase (38-126) U/L Lactate Dehydrogenase (313-618) U/L C-Reactive Protein (<1.0) mg/dL Procalcitonin 0.57 H (0.02-0.09) ng/mL Assessment and Plan Plan: #COVID-19 pneumonitis with viral sepsis Onset of symptoms: About one week prior to admission Date of serological diagnosis: 07/31/21 Chest x-ray: Bilateral infiltrates, pneumonia Oxygen requirements: Currently on 4 L nasal cannula CRP: On admission 6.9 Procalcitonin: 0.57 Ordered dexamethasone, breathing treatments, incentive spirometry, self proning, encourage out of bed Ordered pulmonary consultation evaluate for Remdesevir per protocol Started ceftriaxone, Zithromax in view of elevated procalcitonin Rule out secondary bacterial pneumonia Blood cultures ordered Ordered mycoplasma IgM, Legionella urine antigen and MRSA nasal screen #Asthma, severe On Nucala monthly, last dose 07/23/21 No active wheezing on examination Continue bronchodilators per protocol Continue home inhaler medications, montelukast #Hypertension, benign essential At home on atenolol Continue atenolol Monitor blood pressure #GERD Continue PPI DVT prophylaxis: Subcu Lovenox, monitor D dimer Patient is a full code Marcelo 2 minutes hospital stay will be needed Naya is a surrogate decision-maker
[2021-08-05] MEDS: AZITHROMYCIN 500 MG in SODIUM CHLORIDE 0.9% 250 ML IVPB SCH (15:05)
--- NOTE | 2021-08-05 16:18 | P.CNPUL ---
History of Present Illness Consult date: 08/05/21 Reason for consult: dyspnea, cough, hypoxemia, pneumonia, pulmonary fibrosis, obstructive sleep apnea Chief complaint: Shortness of breath, cough History of present illness: Patient is a morbidly obese 71-year-old male with severe persistent ALLERGIC asthma on maintenance dose of prednisone patient started having shortness of breath cough about 5 days ago was having seemed symptoms up to a point that patient was hypoxic with saturation are 89%, patient underwent covert testing came back positive had a monoclonal antibody infusion 48 hours ago yesterday patient notified the office that he is still short of breath with saturation in the 80s advised to come into emergency department for further evaluation and intervention and treatment, chest x-ray positive for interstitial infiltrate. Patient saturation in the emergency department was 90% however with activity drop down to mid 80s, sodium was 132, potassium 5.2 currently patient is on Rocephin and Zithromax dexamethasone Lovenox Singulair, lactic acid 2.2 improved to 1.3, ferritin is 2003 and 51, LFT mildly elevated, LDH is 1108 C- reactive protein 6.9 pro calcitonin is 0.57, d-dimer is elevated 0.83 Patient is on biologic agents in the Nucala for severe persistent ALLERGIC asthma. Review of Systems All systems: negative Past Medical History Past Medical History: Asthma, Eye Disorder, Hyperlipidemia, Hypertension, Osteoarthritis (OA), Pneumonia, Respiratory Disorder Additional Past Medical History / Comment(s): Asthma-steroid dependent, bronchitis, unable to tolerate statins, hiatal hernia, Zafar's esophagus, gastric/colon benign polyps, starting of bilateral cataracts, occasional back pain. History of Any Multi-Drug Resistant Organisms: None Reported Past Surgical History: Appendectomy, Bladder Surgery, Hernia Repair, Orthopedic Surgery, Tonsillectomy Additional Past Surgical History / Comment(s): egds, colonoscopies, cystoscopies-had bladder "reshaped", R inguinal hernia repair, bilateral thumb basal joint surgeris, bilateral carpal tunnel releases, L wrist ganglion cystectomy Past Anesthesia/Blood Transfusion Reactions: Postoperative Nausea & Vomiting (PONV) Additional Past Anesthesia/Blood Transfusion Reaction / Comment(s): Muscle cramps in abdomin post op Past Psychological History: No Psychological Hx Reported Additional Psychological History / Comment(s): Pt resides with his spouse. He has a nebulizer. He is independent. Smoking Status: Former smoker Past Alcohol Use History: None Reported Additional Past Alcohol Use History / Comment(s): Pt started smoking as a teen and QUIT in 1979. Past Drug Use History: None Reported - Past Family History Father Family Medical History: Cancer Additional Family Medical History / Comment(s): LIVER. Father is . Mother Family Medical History: Hypertension Additional Family Medical History / Comment(s): Mother is . Medications and Allergies Home Medications Medication Instructions Recorded Confirmed Type atenoloL 25 mg PO BID 03/13/15 08/04/21 History RABEprazole SODIUM [Aciphex] 20 mg PO HS 10/25/15 08/04/21 History Ipratropium-Albuterol Nebulize 3 ml INHALATION RT-QID PRN 04/11/20 08/04/21 History [Duoneb 0.5 mg-3 mg/3 ml Soln] Budesonide-Formot 160-4.5 Mcg 1 puff INHALATION RT-BID 07/31/21 08/04/21 History [Symbicort 160-4.5 Mcg Inhaler] Mepolizumab [Nucala] 100 mg SQ QMONTHLY 07/31/21 08/04/21 History Mometasone Furoate [Nasonex Nasal 1 - 2 spray EA NOSTRIL DAILY 07/31/21 08/04/21 History [place]] Montelukast [Singulair] 10 mg PO HS 07/31/21 08/04/21 History predniSONE See Taper PO DAILY 07/31/21 08/04/21 History Allergies Allergy/AdvReac Type Severity Reaction Status Date / Time levofloxacin Allergy Rash/Hives Verified 08/04/21 20:44 atorvastatin calcium AdvReac MUSCLE PAIN Verified 08/04/21 20:44 [From Lipitor] formoterol [From Dulera] AdvReac Rapid Verified 08/04/21 20:44 Heart Rate mometasone furoate AdvReac Rapid Verified 08/04/21 20:44 [From Dulera] Heart Rate Bneoaan-OKL-JhV Reductase AdvReac muscle pain Verified 08/04/21 20:44 Inhibitor [Yyiinjy-Xpc-Hxu Reductase Inhibitor] Physical Exam Vitals: Vital Signs Temp Pulse Pulse Resp BP BP Pulse Ox 08/05/21 14:00 97.6 F 70 18 151/81 96 08/05/21 11:27 95 08/05/21 11:16 91 L 08/05/21 11:07 97.3 F L 72 20 147/87 92 L 08/05/21 10:32 68 18 128/75 97 08/05/21 08:15 98 F 72 18 133/76 92 L 08/05/21 06:20 98.3 F 65 18 127/75 94 L 08/05/21 03:56 68 08/05/21 03:46 80 08/05/21 02:21 98.7 F 63 18 124/68 94 L 08/04/21 23:29 98.7 F 71 18 129/83 94 L 08/04/21 21:45 99 F 73 18 135/91 92 L 08/04/21 18:23 99.3 F 80 20 136/74 92 L Intake and Output 08/05/21 08/05/21 08/05/21 06:59 14:59 22:59 Intake Total 120 Balance 120 Intake: Oral 120 Other: Weight 115.666 kg - Constitutional General appearance: disheveled, mild distress, morbidly obese - EENT Eyes: EOMI, PERRLA Ears: bilateral: normal - Neck Neck: normal ROM Carotids: bilateral: upstroke normal Thyroid: bilateral: normal size - Respiratory Respiratory: bilateral: diminished, wheezing (Finding history and expiratory) - Cardiovascular Rhythm: regular Heart sounds: normal: S1, S2 - Neurologic Neurologic: CNII-XII intact - Musculoskeletal Musculoskeletal: gait normal, generalized weakness, strength equal bilaterally - Psychiatric Psychiatric: A&O x's 3, appropriate affect, intact judgment & insight Results - Laboratory Findings CBC and BMP: 08/04/21 18:39 08/05/21 06:00 PT/INR, D-dimer PT 9.7 sec (9.0-12.0) 08/04/21 18:39 INR 0.9 (<1.2) 08/04/21 18:39 D-Dimer 0.83 mg/L FEU (<0.60) H 08/05/21 13:19 Abnormal lab findings: Abnormal Labs 08/04/21 08/04/21 08/04/21 18:39 18:39 18:39 Lymphocytes # 0.4 L D-Dimer Sodium 132 L Potassium 5.2 H Carbon Dioxide 21 L Glucose 154 H Plasma Lactic Acid Skip 2.2 H* AST 87 H ALT 91 H Alkaline Phosphatase 31 L Lactate Dehydrogenase 1108 H C-Reactive Protein 6.9 H Procalcitonin 08/04/21 08/05/21 08/05/21 18:39 06:00 13:19 Lymphocytes # D-Dimer 0.83 H Sodium Potassium Carbon Dioxide 19.0 L Glucose 132 H Plasma Lactic Acid Skip AST ALT Alkaline Phosphatase Lactate Dehydrogenase C-Reactive Protein Procalcitonin 0.57 H - Diagnostic Findings Chest x-ray: report reviewed, image reviewed (Finding as noted above) Assessment and Plan Assessment: Acute hypoxic respiratory failure COVID-19 pneumonia Chronic persistent ALLERGIC asthma on Biologics with acute exacerbation Morbid obesity Hypertension hypertensive cardiovascular disease Elevated d-dimer Elevated inflammatory markers Plan: IV steroids Breathing treatments Continue antibiotics IV REMdesivir Computed tomography scan of the chest Anti-inflammatory electrolytes and vitamins Time with Patient: Greater than 30
[2021-08-05] MEDS ORDERED: REMDESIVIR 200 MG in SODIUM CHLORIDE 0.9% 250 ML IVPB ONE (18:00)
[2021-08-05] MEDS: ZINC SULFATE 220 MG CAP PO SCH (18:03)
[2021-08-05] MEDS: methylPREDNISolone SOD SUCCI 125 MG/2 ML VIAL IV SCH ×2 (18:04→22:45)
[2021-08-05] MEDS: ERGOCALCIFEROL 1,250 MCG (50,000 IU) CAPSULE PO SCH (18:05)
--- NOTE | 2021-08-05 19:26 | CT ---
EXAMINATION TYPE: CT angio chest DATE OF EXAM: 08/05/2021 COMPARISON: 04/12/2020 HISTORY: SOB, +covid CT DLP: 667 mGycm Automated exposure control for dose reduction was used. CONTRAST: Performed with IV Contrast, patient injected with 100 mL of Isovue 370. Images obtained from the thoracic inlet to the diaphragm with IV contrast. There are 3-D post process ed images. There is some patchy atelectasis at the posterior lung bases. There is no pleural effusion. There is hiatal hernia. Heart size is normal. There is no pericardial effusion. There is normal contrast opacification of the pulmonary arteries. There are no filling defects. There is no mediastinal adenopathy. There are no hilar masses. There is dense coronary artery calcifi cation. There is some fatty infiltration of the liver. There is anterior wedging of multiple thoracic vertebra with a mild thoracic kyphotic deformity. This involves T4 and T7 and T9 and L1 and L2 verte bra. IMPRESSION: No evidence of pulmonary embolism. Patchy minimal atelectasis and scarring at the lung bases. No susp icious pulmonary mass. Hiatal hernia. There is mild progression of the thoracic compression fractures compared to old exam.
[2021-08-05] MEDS: MONTELUKAST 10 MG TAB PO SCH (19:58)
[2021-08-05] MEDS: PANTOPRAZOLE 40 MG TABLET PO SCH (19:58)
[2021-08-06] MEDS: methylPREDNISolone SOD SUCCI 125 MG/2 ML VIAL IV SCH ×3 (05:56→17:34)
[2021-08-06] MEDS: SYMBICORT 160-4.5 MCG INHALER INHALATION SCH ×2 (08:30→19:56)
[2021-08-06] MEDS: ALBUTEROL HFA INHALER INHALATION PRN ×4 (08:30→19:56)
[2021-08-06] MEDS ORDERED: DEXAMETHASONE SOD PHOSPHATE 10 MG/ML 1 ML VIAL IVP SCH (09:00)
[2021-08-06] MEDS: VIT A,C & E-LUTEIN-MINERALS 1 EACH TAB PO SCH (09:12)
[2021-08-06] MEDS: atenoloL 25 MG TAB PO SCH ×2 (09:12→20:59)
[2021-08-06] MEDS: ENOXAPARIN 40 MG/0.4 ML SYRINGE SQ SCH (09:12)
[2021-08-06] MEDS: ZINC SULFATE 220 MG CAP PO SCH (09:13)
[2021-08-06 09:45] LABS: HCT 43.9 % (39.6-50.0); HGB 14.6 g/dL (13.0-17.0); MCH 31.7 pg (27.0-32.0); MCHC 33.3 g/dL (32.0-37.0); MCV 95.4 fL (80.0-97.0); Mean Platelet Volume 10.7 fL (9.5-12.2); Platelet Count 205 X 10*3/uL (140-440); RDW 13.4 % (11.5-14.5); WBC 7.22 X 10*3/uL (4.50-10.00)
--- NOTE | 2021-08-06 09:47 | P.PN ---
Subjective Principal diagnosis: COVID-19 pneumonitis with acute hypoxic respiratory failure Chart was reviewed patient was seen and examined. 71-year-old male with history of asthma and hypertension, admitted with progressively worsening respiratory symptoms shortness of breath nonproductive dry cough and body aches chills. This started about 1 week prior to admission. Diagnosed with COVID-19 on 07/31/21 and MRSA Department and received Regeneron. Follow respiratory symptoms continued to worsen and he returned to ER. chest x-ray showed bilateral pneumonia. Elevated procalcitonin, d dimer. he was placed on oxygen due to shortness of breath and oxygen saturation in low 90s. Patient was started on antibiotics, remdesevir, steroids, bronchodilators. CT angiogram of the chest showed bilateral pneumonia, atelectasis, no pulmonary embolism Patient is feeling much better this morning. He remains on 4 L nasal cannula. He is up in the chair. She feels that his breathing better. Denies any chest pain or nausea vomiting or diarrhea. Objective - Vital Signs Vital signs: Vital Signs Temp 98.5 F 08/06/21 07:40 Pulse 62 08/06/21 07:40 Resp 16 08/06/21 07:40 BP 122/77 08/06/21 07:40 Pulse Ox 90 L 08/06/21 07:40 Intake & Output 08/05/21 08/06/21 08/06/21 18:59 06:59 18:59 Intake Total 120 730 118 Output Total 400 Balance -280 730 118 Weight 115.666 kg Intake: Oral 120 730 118 Output: Urine 400 Other: # Voids 1 - Exam General: Awake alert oriented 3, not in distress Head and neck: No facial asymmetry, pupils are round and reactive to light conjunctiva clear oropharyngeal mucosa is clear of any lesions no neck masses no JVD Lungs: Breathing is nonlabored, normal breath sounds, good basilar inspiratory crackles, no wheezing or rhonchi Cardiovascular: Regular rhythm and rate S1-S2 Abdomen: Bowel sounds present throughout, soft, nondistended nontender no flank tenderness no organomegaly Extremities: Trace pedal edema without any calf tenderness warmth or cyanosis, DP pulses present bilateral Neurological: No asterixis Muscular skeletal, no joint swelling or deformities or clubbing - Labs CBC & Chem 7: 08/04/21 18:39 08/05/21 06:00 Labs: Abnormal Lab Results - Last 24 Hours (Table) 08/04/21 08/05/21 08/05/21 Range/Units 18:39 06:00 13:19 D-Dimer 0.83 H (<0.60) mg/L FEU Carbon Dioxide 19.0 L (20.0-27.5) mmol/L Glucose 132 H (70-110) mg/dL Ferritin 2351.0 H (22.0-322.0) ng/mL Microbiology - Last 24 Hours (Table) 08/05/21 15:35 Nasal Screen MRSA/MSSA - Preliminary Nasal Swab Assessment and Plan Plan: #COVID-19 pneumonitis with viral sepsis Onset of symptoms: one week prior to admission Date of serological diagnosis: 07/31/21 Chest x-ray: Bilateral infiltrates, pneumonia CT angiogram of the chest: Bilateral atelectasis patchy infiltrates, no pu lmonary embolism Oxygen requirements: Currently on 4 L nasal cannula CRP: On admission 6.9 Procalcitonin: 0.57 Pro BNP and troponin normal Treatment: Remdesevir, dexamethasone, breathing treatments, incentive spirometry, self proning, encourage out of bed Pulmonary consultation Started ceftriaxone, Zithromax in view of elevated procalcitonin Blood cultures ordered Ordered mycoplasma IgM, Legionella urine antigen and MRSA nasal screen #Asthma, severe On Nucala monthly, last dose 07/23/21 No active wheezing on examination Continue bronchodilators per protocol Continue home inhaler medications, montelukast #Hypertension, benign essential At home on atenolol Continue atenolol Monitor blood pressure: Monitor heart rate #GERD Continue PPI DVT prophylaxis: Subcu Lovenox, monitor D dimer Patient is a full code Naya is a surrogate decision-maker
--- NOTE | 2021-08-06 10:08 | P.PN ---
Subjective Progress Note Date: 08/06/21 Principal diagnosis: Acute hypoxic respiratory failure COVID-19 pneumonia Chronic persistent ALLERGIC asthma on Biologics with acute exacerbation Morbid obesity Hypertension hypertensive cardiovascular disease Elevated d-dimer Elevated inflammatory markers 08/06/2021, patient seen eval examined during the rounds labs reviewed medications reviewed care plan discussed, respiratory status the is marginal but stable, patient on 4 L oxygen patient remains on IV therapy with REMdesivir, patient remains on bronchodilators along with IV antibiotics, Decadron can be discontinued as patient is on steroids, computed tomography scan of the chest has been reviewed no pulmonary embolism is seen bilateral basal infiltrate and scarring has been seen some compression fracture and find chronic and old some progression may be appreciated Patient is a morbidly obese 71-year-old male with severe persistent ALLERGIC asthma on maintenance dose of prednisone patient started having shortness of breath cough about 5 days ago was having seemed symptoms up to a point that patient was hypoxic with saturation are 89%, patient underwent covert testing came back positive had a monoclonal antibody infusion 48 hours ago yesterday patient notified the office that he is still short of breath with saturation in the 80s advised to come into emergency department for further evaluation and intervention and treatment, chest x-ray positive for interstitial infiltrate. Patient saturation in the emergency department was 90% however with activity drop down to mid 80s, sodium was 132, potassium 5.2 currently patient is on Rocephin and Zithromax dexamethasone Lovenox Singulair, lactic acid 2.2 improved to 1.3, ferritin is 2003 and 51, LFT mildly elevated, LDH is 1108 C-reactive protein 6.9 pro calcitonin is 0.57, d-dimer is elevated 0.83 Patient is on biologic agents in the Nucala for severe persistent ALLERGIC asthma. Objective - Vital Signs Vital signs: Vital Signs Temp 98.5 F 08/06/21 07:40 Pulse 62 08/06/21 07:40 Resp 16 08/06/21 07:40 BP 122/77 08/06/21 07:40 Pulse Ox 90 L 08/06/21 07:40 Intake & Output 08/05/21 08/06/21 08/06/21 18:59 06:59 18:59 Intake Total 120 730 118 Output Total 400 Balance -280 730 118 Weight 115.666 kg Intake: Oral 120 730 118 Output: Urine 400 Other: # Voids 1 - Exam - Constitutional General appearance: disheveled, mild distress, morbidly obese - EENT Eyes: EOMI, PERRLA Ears: bilateral: normal - Neck Neck: normal ROM Carotids: bilateral: upstroke normal Thyroid: bilateral: normal size - Respiratory Respiratory: bilateral: diminished, wheezing (Finding history and expiratory) - Cardiovascular Rhythm: regular Heart sounds: normal: S1, S2 - Neurologic Neurologic: CNII-XII intact - Musculoskeletal Musculoskeletal: gait normal, generalized weakness, strength equal bilaterally - Psychiatric Psychiatric: A&O x's 3, appropriate affect, intact judgment & insight - Labs CBC & Chem 7: 08/06/21 06:34 08/05/21 06:00 Labs: Abnormal Lab Results - Last 24 Hours (Table) 08/04/21 08/05/21 08/05/21 Range/Units 18:39 06:00 13:19 D-Dimer 0.83 H (<0.60) mg/L FEU Carbon Dioxide 19.0 L (20.0-27.5) mmol/L Glucose 132 H (70-110) mg/dL Ferritin 2351.0 H (22.0-322.0) ng/mL Microbiology - Last 24 Hours (Table) 08/05/21 15:35 Nasal Screen MRSA/MSSA - Preliminary Nasal Swab Assessment and Plan Assessment: Acute hypoxic respiratory failure COVID-19 pneumonia Chronic persistent ALLERGIC asthma on Biologics with acute exacerbation Morbid obesity Hypertension hypertensive cardiovascular disease Elevated d-dimer Elevated inflammatory markers Plan: IV steroids Breathing treatments Continue antibiotics IV REMdesivir Computed tomography scan of the chest reviewed no pulmonary embolism seen Anti-inflammatory electrolytes and vitamins Time with Patient: Greater than 30
[2021-08-06 10:41] LABS: African American GFR (CKD) 79.8 (60.0-200.0); Albumin 3.3 g/dL (3.8-4.9); Albumin/Globulin Ratio 1.43 (1.60-3.17); Anion Gap 12.9 mmol/L (10.00-18.00); BUN/Creat Ratio 17.16 Ratio (12.00-20.00); Blood Urea Nitrogen 18.7 mg/dL (9.0-27.0); Calcium 8.8 mg/dL (8.7-10.3); Globulin 2.3 g/dL (1.6-3.3); Non-African American GFR(CKD) 68.9 (60.0-200.0); Potassium 5.2 mmol/L (3.5-5.5); Total Bilirubin 0.4 mg/dL (0.30-1.20); Total Protein 5.6 g/dL (6.2-8.2)
[2021-08-06] MEDS: AZITHROMYCIN 500 MG in SODIUM CHLORIDE 0.9% 250 ML IVPB SCH (10:51)
[2021-08-06] MEDS: REMDESIVIR 100 MG in SODIUM CHLORIDE 0.9% 250 ML IVPB SCH (17:34)
[2021-08-06] MEDS: PANTOPRAZOLE 40 MG TABLET PO SCH (20:59)
[2021-08-06] MEDS: MONTELUKAST 10 MG TAB PO SCH (20:59)
[2021-08-07] MEDS: methylPREDNISolone SOD SUCCI 125 MG/2 ML VIAL IV SCH ×5 (00:12→23:16)
[2021-08-07] MEDS: ZINC SULFATE 220 MG CAP PO SCH (07:50)
[2021-08-07] MEDS: atenoloL 25 MG TAB PO SCH ×2 (07:50→20:51)
[2021-08-07] MEDS: ENOXAPARIN 40 MG/0.4 ML SYRINGE SQ SCH (07:50)
[2021-08-07] MEDS: VIT A,C & E-LUTEIN-MINERALS 1 EACH TAB PO SCH (07:50)
[2021-08-07] MEDS: AZITHROMYCIN 500 MG in SODIUM CHLORIDE 0.9% 250 ML IVPB SCH (08:51)
[2021-08-07] MEDS: SYMBICORT 160-4.5 MCG INHALER INHALATION SCH ×2 (09:04→19:51)
[2021-08-07] MEDS: ALBUTEROL HFA INHALER INHALATION PRN ×4 (09:04→19:51)
--- NOTE | 2021-08-07 09:14 | P.PN ---
Subjective Principal diagnosis: COVID-19 pneumonitis with acute hypoxic respiratory failure Chart was reviewed patient was seen and examined. 71-year-old male with history of asthma and hypertension, admitted with progressively worsening respiratory symptoms shortness of breath nonproductive dry cough and body aches chills. This started about 1 week prior to admission. Diagnosed with COVID-19 on 07/31/21 and MRSA Department and received Regeneron. Follow respiratory symptoms continued to worsen and he returned to ER. chest x-ray showed bilateral pneumonia. Elevated procalcitonin, d dimer. he was placed on oxygen due to shortness of breath and oxygen saturation in low 90s. Patient was started on antibiotics, remdesevir, steroids, bronchodilators. CT angiogram of the chest showed bilateral pneumonia, atelectasis, no pulmonary embolism Patient states that he continues to improve and his breathing is better.. He remains on 4 L nasal cannula. He is up in the chair. She feels that his breathing better. Denies any chest pain or nausea vomiting or diarrhea. Objective - Vital Signs Vital signs: Vital Signs Temp 97.8 F 08/07/21 08:00 Pulse 64 08/07/21 08:00 Resp 20 08/07/21 08:00 BP 153/82 08/07/21 08:00 Pulse Ox 94 L 08/07/21 08:00 Intake & Output 08/06/21 08/07/21 08/07/21 18:59 06:59 18:59 Intake Total 538 260 Balance 538 260 Intake: Oral 538 260 Other: Voiding Method Toilet # Voids 2 - Exam General: Awake alert oriented 3, not in distress Head and neck: No facial asymmetry, pupils are round and reactive to light conjunctiva clear oropharyngeal mucosa is clear of any lesions no neck masses no JVD Lungs: Breathing is nonlabored, normal breath sounds, good basilar inspiratory crackles, no wheezing or rhonchi Cardiovascular: Regular rhythm and rate S1-S2 Abdomen: Bowel sounds present throughout, soft, nondistended nontender no flank tenderness no organomegaly Extremities: Trace pedal edema without any calf tenderness warmth or cyanosis, DP pulses present bilateral Neurological: No asterixis Muscular skeletal, no joint swelling or deformities or clubbing - Labs CBC & Chem 7: 08/06/21 06:34 08/06/21 06:34 Labs: Abnormal Lab Results - Last 24 Hours (Table) 08/06/21 Range/Units 06:34 Glucose 124 H (70-110) mg/dL AST 48 H (14-35) U/L ALT 88 H (10-49) U/L Total Protein 5.6 L (6.2-8.2) g/dL Albumin 3.3 L (3.8-4.9) g/dL Albumin/Globulin Ratio 1.43 L (1.60-3.17) g/dL Microbiology - Last 24 Hours (Table) 08/05/21 15:35 Nasal Screen MRSA/MSSA - Final Nasal Swab 08/05/21 13:19 Blood Culture - Preliminary Blood No Growth after 24 hours Assessment and Plan Plan: #COVID-19 pneumonitis with viral sepsis Onset of symptoms: one week prior to admission Date of serological diagnosis: 07/31/21 Chest x-ray: Bilateral infiltrates, pneumonia CT angiogram of the chest: Bilateral atelectasis patchy infiltrates, no pulmonary embolism Oxygen requirements: Currently on 4 L nasal cannula CRP: On admission 6.9 Procalcitonin: 0.57 Pro BNP and troponin normal Treatment: Remdesevir, dexamethasone, breathing treatments, incentive spirometry, self proning, encourage out of bed Pulmonary consultation Started ceftriaxone, Zithromax in view of elevated procalcitonin Transition to oral antibiotics Blood cultures ordered Ordered mycoplasma IgM, Legionella urine antigen and MRSA nasal screen #Asthma, severe On Nucala monthly, last dose 07/23/21 No active wheezing on examination Continue bronchodilators per protocol Continue home inhaler medications, montelukast #Hypertension, benign essential At home on atenolol Continue atenolol Monitor blood pressure: Monitor heart rate #GERD Continue PPI DVT prophylaxis: Subcu Lovenox, monitor D dimer Patient is a full code Naya is a surrogate decision-maker
[2021-08-07 12:30] LABS: African American GFR (CKD) 98.1 (60.0-200.0); Albumin 3.4 g/dL (3.8-4.9); Albumin/Globulin Ratio 1.36 (1.60-3.17); Anion Gap 12.6 mmol/L (10.00-18.00); BUN/Creat Ratio 21.22 Ratio (12.00-20.00); Blood Urea Nitrogen 19.5 mg/dL (9.0-27.0); Calcium 8.6 mg/dL (8.7-10.3); Carbon Dioxide 23.2 mmol/L (20.0-27.5); Globulin 2.5 g/dL (1.6-3.3); Magnesium 2.2 mg/dL (1.5-2.4); Non-African American GFR(CKD) 84.7 (60.0-200.0); Potassium 4.5 mmol/L (3.5-5.5); Total Bilirubin 0.4 mg/dL (0.30-1.20); Total Protein 5.8 g/dL (6.2-8.2)
--- NOTE | 2021-08-07 13:41 | P.PN ---
Subjective Progress Note Date: 08/07/21 Principal diagnosis: Acute hypoxic respiratory failure COVID-19 pneumonia Chronic persistent ALLERGIC asthma on Biologics with acute exacerbation Morbid obesity Hypertension hypertensive cardiovascular disease Elevated d-dimer Elevated inflammatory markers 08/07/2021, patient seen eval examined his labs reviewed medications reviewed care plan discussed, status remains stable on 4 L oxygen, ongoing shortness of breath on activity and exertion is present but severity or shortness breath is improved patient jacome clear, had to wake up at nighttime for extra treatment, patient appropriately being treated with high-dose steroids breathing treatments bronchodilators and IV REMdesivir for COVID-19 pneumonia and asthma 08/06/2021, patient seen idris examined during the rounds labs reviewed medications reviewed care plan discussed, respiratory status the is marginal but stable, patient on 4 L oxygen patient remains on IV therapy with REMdesivir, patient remains on bronchodilators along with IV antibiotics, Decadron can be discontinued as patient is on steroids, computed tomography scan of the chest has been reviewed no pulmonary embolism is seen bilateral basal infiltrate and scarring has been seen some compression fracture and find chronic and old some progression may be appreciated Patient is a morbidly obese 71-year-old male with severe persistent ALLERGIC asthma on maintenance dose of prednisone patient started having shortness of breath cough about 5 days ago was having seemed symptoms up to a point that patient was hypoxic with saturation are 89%, patient underwent covert testing came back positive had a monoclonal antibody infusion 48 hours ago yesterday patient notified the office that he is still short of breath with saturation in the 80s advised to come into emergency department for further evaluation and intervention and treatment, chest x-ray positive for interstitial infiltrate. Patient saturation in the emergency department was 90% however with activity drop down to mid 80s, sodium was 132, potassium 5.2 currently patient is on Rocephin and Zithromax dexamethasone Lovenox Singulair, lactic acid 2.2 improved to 1.3, ferritin is 2003 and 51, LFT mildly elevated, LDH is 1108 C- reactive protein 6.9 pro calcitonin is 0.57, d-dimer is elevated 0.83 Patient is on biologic agents in the [place] for severe persistent ALLERGIC asthma. Objective - Vital Signs Vital signs: Vital Signs Temp 97.8 F 08/07/21 08:00 Pulse 64 08/07/21 08:00 Resp 20 08/07/21 08:00 BP 153/82 08/07/21 08:00 Pulse Ox 94 L 08/07/21 08:00 Intake & Output 08/06/21 08/07/21 08/07/21 18:59 06:59 18:59 Intake Total 538 260 Output Total 250 Balance 538 260 -250 Intake: Oral 538 260 Output: Urine 250 Other: Voiding Method Toilet # Voids 2 - Exam - Constitutional General appearance: disheveled, mild distress, morbidly obese - EENT Eyes: EOMI, PERRLA Ears: bilateral: normal - Neck Neck: normal ROM Carotids: bilateral: upstroke normal Thyroid: bilateral: normal size - Respiratory Respiratory: bilateral: diminished, wheezing (Finding history and expiratory) - Cardiovascular Rhythm: regular Heart sounds: normal: S1, S2 - Neurologic Neurologic: CNII-XII intact - Musculoskeletal Musculoskeletal: gait normal, generalized weakness, strength equal bilaterally - Psychiatric Psychiatric: A&O x's 3, appropriate affect, intact judgment & insight - Labs CBC & Chem 7: 08/06/21 06:34 08/07/21 06:42 Labs: Abnormal Lab Results - Last 24 Hours (Table) 08/07/21 Range/Units 06:42 BUN/Creatinine Ratio 21.22 H (12.00-20.00) Ratio Glucose 132 H (70-110) mg/dL Calcium 8.6 L (8.7-10.3) mg/dL AST 43 H (14-35) U/L ALT 91 H (10-49) U/L Total Protein 5.8 L (6.2-8.2) g/dL Albumin 3.4 L (3.8-4.9) g/dL Albumin/Globulin Ratio 1.36 L (1.60-3.17) g/dL Microbiology - Last 24 Hours (Table) 08/05/21 15:35 Nasal Screen MRSA/MSSA - Final Nasal Swab 08/05/21 13:19 Blood Culture - Preliminary Blood No Growth after 24 hours Assessment and Plan Assessment: Acute hypoxic respiratory failure COVID-19 pneumonia Chronic persistent ALLERGIC asthma on Biologics with acute exacerbation Morbid obesity Hypertension hypertensive cardiovascular disease Elevated d-dimer Elevated inflammatory markers Plan: Continue supplemental oxygen patient may very well will require home oxygen as well IV steroids Breathing treatments Continue antibiotics IV REMdesivir Computed tomography scan of the chest reviewed no pulmonary embolism seen Anti-inflammatory electrolytes and vitamins Time with Patient: Greater than 30
[2021-08-07 13:57] LABS: HCT 45.1 % (39.6-50.0); HGB 14.9 g/dL (13.0-17.0); MCH 31.8 pg (27.0-32.0); MCV 96.2 fL (80.0-97.0); Mean Platelet Volume 10.6 fL (9.5-12.2); Platelet Count 264 X 10*3/uL (140-440); RBC 4.69 X 10*6/uL (4.40-5.60); RDW 13.5 % (11.5-14.5)
[2021-08-07] MEDS: REMDESIVIR 100 MG in SODIUM CHLORIDE 0.9% 250 ML IVPB SCH (17:55)
[2021-08-07] MEDS: MONTELUKAST 10 MG TAB PO SCH (20:51)
[2021-08-07] MEDS: PANTOPRAZOLE 40 MG TABLET PO SCH (20:51)
[2021-08-08] MEDS ORDERED: BENZOCAINE/MENTHOL LOZENG 1 EACH LOZENGE MUCOUS MEM PRN (01:30)
[2021-08-08] MEDS: methylPREDNISolone SOD SUCCI 125 MG/2 ML VIAL IV SCH ×3 (05:48→17:56)
[2021-08-08 07:46] LABS: Glucose,Whole Blood 120 mg/dL (75-99)
[2021-08-08] MEDS: SYMBICORT 160-4.5 MCG INHALER INHALATION SCH ×2 (07:57→19:44)
[2021-08-08] MEDS: ZINC SULFATE 220 MG CAP PO SCH (09:18)
[2021-08-08] MEDS: ENOXAPARIN 40 MG/0.4 ML SYRINGE SQ SCH (09:19)
[2021-08-08] MEDS: VIT A,C & E-LUTEIN-MINERALS 1 EACH TAB PO SCH (09:19)
[2021-08-08] MEDS: atenoloL 25 MG TAB PO SCH ×2 (09:19→21:23)
[2021-08-08 09:22] LABS: HCT 45.5 % (39.6-50.0); HGB 14.5 g/dL (13.0-17.0); MCH 31.1 pg (27.0-32.0); MCHC 31.9 g/dL (32.0-37.0); MCV 97.6 fL (80.0-97.0); Mean Platelet Volume 10.7 fL (9.5-12.2); Platelet Count 287 X 10*3/uL (140-440); RBC 4.66 X 10*6/uL (4.40-5.60); RDW 13.5 % (11.5-14.5); WBC 6.39 X 10*3/uL (4.50-10.00)
[2021-08-08] MEDS ORDERED: BUMETANIDE 0.25 MG/ML 4 ML VIAL IVP STA (09:25)
--- NOTE | 2021-08-08 10:28 | P.PN ---
Subjective Principal diagnosis: COVID-19 pneumonitis with acute hypoxic respiratory failure Chart was reviewed patient was seen and examined. 71-year-old male with history of asthma and hypertension, admitted with progressively worsening respiratory symptoms shortness of breath nonproductive dry cough and body aches chills. This started about 1 week prior to admission. Diagnosed with COVID-19 on 07/31/21 and MRSA Department and received Regeneron. Follow respiratory symptoms continued to worsen and he returned to ER. chest x-ray showed bilateral pneumonia. Elevated procalcitonin, d dimer. he was placed on oxygen due to shortness of breath and oxygen saturation in low 90s. Patient was started on antibiotics, remdesevir, steroids, bronchodilators. CT angiogram of the chest showed bilateral pneumonia, atelectasis, no pulmonary embolism Patient continues to improve clinically. He is on 24 liters nasal cannula. Denies any nausea vomiting abdominal chest pain. Appetite improving. Objective - Vital Signs Vital signs: Vital Signs Temp 97.9 F 08/08/21 08:00 Pulse 60 08/08/21 08:00 Resp 20 08/08/21 08:00 BP 156/79 08/08/21 08:00 Pulse Ox 90 L 08/08/21 08:00 Intake & Output 08/07/21 08/08/21 08/08/21 18:59 06:59 18:59 Intake Total 118 240 240 Output Total 250 Balance -132 240 240 Intake: Oral 118 240 240 Output: Urine 250 Other: Voiding Method Toilet Toilet # Voids 2 0 - Exam General: Awake alert oriented 3, not in distress Head and neck: No facial asymmetry, pupils are round and reactive to light conjunctiva clear oropharyngeal mucosa is clear of any lesions no neck masses no JVD Lungs: Breathing is nonlabored, normal breath sounds, good basilar inspiratory crackles, no wheezing or rhonchi Cardiovascular: Regular rhythm and rate S1-S2 Abdomen: Bowel sounds present throughout, soft, nondistended nontender no flank tenderness no organomegaly Extremities: Trace pedal edema without any calf tenderness warmth or cyanosis, DP pulses present bilateral Neurological: No asterixis Muscular skeletal, no joint swelling or deformities or clubbing - Labs CBC & Chem 7: 08/08/21 05:21 08/07/21 06:42 Labs: Abnormal Lab Results - Last 24 Hours (Table) 1208/08/21 08/08/21 Range/Units 06:42 05:21 07:45 MCV 97.6 H (80.0-97.0) fL MCHC 31.9 L (32.0-37.0) g/dL BUN/Creatinine Ratio 21.22 H (12.00-20.00) Ratio Glucose 132 H (70-110) mg/dL POC Glucose (mg/dL) 120 H (75-99) mg/dL Calcium 8.6 L (8.7-10.3) mg/dL AST 43 H (14-35) U/L ALT 91 H (10-49) U/L Total Protein 5.8 L (6.2-8.2) g/dL Albumin 3.4 L (3.8-4.9) g/dL Albumin/Globulin Ratio 1.36 L (1.60-3.17) g/dL Microbiology - Last 24 Hours (Table) 08/05/21 13:19 Blood Culture - Preliminary Blood No Growth after 48 hours Assessment and Plan Plan: #COVID-19 pneumonitis with viral sepsis Onset of symptoms: one week prior to admission Date of serological diagnosis: 07/31/21 Chest x-ray: Bilateral infiltrates, pneumonia CT angiogram of the chest: Bilateral atelectasis patchy infiltrates, no pulmonary embolism Oxygen requirements: Currently on 4 L nasal cannula CRP: On admission 6.9 Procalcitonin: 0.57 Pro BNP and troponin normal Treatment: Remdesevir, dexamethasone, breathing treatments, incentive spirometry, self proning, encourage out of bed Pulmonary consultation Started ceftriaxone, Zithromax in view of elevated procalcitonin Transition to oral antibiotics Blood cultures ordered Ordered mycoplasma IgM, Legionella urine antigen and MRSA nasal screen #Asthma, severe On Nucala monthly, last dose 07/23/21 No active wheezing on examination Continue bronchodilators per protocol Continue home inhaler medications, montelukast #Hypertension, benign essential At home on atenolol Continue atenolol Monitor blood pressure: Monitor heart rate #GERD Continue PPI DVT prophylaxis: Subcu Lovenox, monitor D dimer Patient is a full code Naya is a surrogate decision-maker
[2021-08-08 10:33] LABS: African American GFR (CKD) 94.3 (60.0-200.0); Albumin 3.4 g/dL (3.8-4.9); Albumin/Globulin Ratio 1.48 (1.60-3.17); Anion Gap 12.3 mmol/L (10.00-18.00); BUN/Creat Ratio 22.11 Ratio (12.00-20.00); Calcium 8.7 mg/dL (8.7-10.3); Carbon Dioxide 23.2 mmol/L (20.0-27.5); Globulin 2.3 g/dL (1.6-3.3); Non-African American GFR(CKD) 81.3 (60.0-200.0); Potassium 5.2 mmol/L (3.5-5.5); Total Bilirubin 0.4 mg/dL (0.30-1.20); Total Protein 5.7 g/dL (6.2-8.2)
[2021-08-08] MEDS: ALBUTEROL HFA INHALER INHALATION PRN ×3 (10:43→19:43)
[2021-08-08 12:27] LABS: Glucose,Whole Blood 117 mg/dL (75-99)
[2021-08-08 17:28] LABS: Glucose,Whole Blood 158 mg/dL (75-99)
[2021-08-08] MEDS: ERGOCALCIFEROL 1,250 MCG (50,000 IU) CAPSULE PO SCH (17:56)
[2021-08-08] MEDS: REMDESIVIR 100 MG in SODIUM CHLORIDE 0.9% 250 ML IVPB SCH (17:56)
[2021-08-08 20:43] LABS: Glucose,Whole Blood 135 mg/dL (75-99)
[2021-08-08] MEDS: PANTOPRAZOLE 40 MG TABLET PO SCH (21:23)
[2021-08-08] MEDS: MONTELUKAST 10 MG TAB PO SCH (21:23)
[2021-08-09] MEDS: methylPREDNISolone SOD SUCCI 125 MG/2 ML VIAL IV SCH ×3 (00:28→11:53)
[2021-08-09 07:31] LABS: Glucose,Whole Blood 126 mg/dL (75-99)
[2021-08-09] MEDS: atenoloL 25 MG TAB PO SCH (09:02)
[2021-08-09] MEDS: VIT A,C & E-LUTEIN-MINERALS 1 EACH TAB PO SCH (09:02)
[2021-08-09] MEDS: ENOXAPARIN 40 MG/0.4 ML SYRINGE SQ SCH (09:02)
[2021-08-09] MEDS: ZINC SULFATE 220 MG CAP PO SCH (09:02)
[2021-08-09] MEDS: ALBUTEROL HFA INHALER INHALATION PRN ×2 (09:19→12:22)
[2021-08-09] MEDS: SYMBICORT 160-4.5 MCG INHALER INHALATION SCH (09:19)
--- NOTE | 2021-08-09 10:35 | P.PN ---
Subjective Progress Note Date: 08/08/21 Principal diagnosis: Acute hypoxic respiratory failure COVID-19 pneumonia Chronic persistent ALLERGIC asthma on Biologics with acute exacerbation Morbid obesity Hypertension hypertensive cardiovascular disease Elevated d-dimer Elevated inflammatory markers 08/08/2021, patient seen and evaluated examined on 4 L oxygen, doing well, continued on bronchodilator deep breathing sense incentive spirometry denies any chest pain breathing relatively better on IV REMdesivirr 08/07/2021, patient seen eval examined his labs reviewed medications reviewed care plan discussed, status remains stable on 4 L oxygen, ongoing shortness of breath on activity and exertion is present but severity or shortness breath is improved patient jacome clear, had to wake up at nighttime for extra treatment, patient appropriately being treated with high-dose steroids breathing treatments bronchodilators and IV REMdesivir for COVID-19 pneumonia and asthma 08/06/2021, patient seen eval examined during the rounds labs reviewed medications reviewed care plan discussed, respiratory status the is marginal but stable, patient on 4 L oxygen patient remains on IV therapy with REMdesivir, patient remains on bronchodilators along with IV antibiotics, Decadron can be discontinued as patient is on steroids, computed tomography scan of the chest has been reviewed no pulmonary embolism is seen bilateral basal infiltrate and scarring has been seen some compression fracture and find chronic and old some progression may be appreciated Patient is a morbidly obese 71-year-old male with severe persistent ALLERGIC asthma on maintenance dose of prednisone patient started having shortness of breath cough about 5 days ago was having seemed symptoms up to a point that patient was hypoxic with saturation are 89%, patient underwent covert testing came back positive had a monoclonal antibody infusion 48 hours ago yesterday patient notified the office that he is still short of breath with saturation in the 80s advised to come into emergency department for further evaluation and intervention and treatment, chest x-ray positive for interstitial infiltrate. Patient saturation in the emergency department was 90% however with activity drop down to mid 80s, sodium was 132, potassium 5.2 currently patient is on Rocephin and Zithromax dexamethasone Lovenox Singulair, lactic acid 2.2 improved to 1.3, ferritin is 2003 and 51, LFT mildly elevated, LDH is 1108 C- reactive protein 6.9 pro calcitonin is 0.57, d-dimer is elevated 0.83 Patient is on biologic agents in the Nucala for severe persistent ALLERGIC asthma. Objective - Vital Signs Vital signs: Vital Signs Temp 97.9 F 08/08/21 08:00 Pulse 60 08/08/21 08:00 Resp 20 08/08/21 08:00 BP 156/79 08/08/21 08:00 Pulse Ox 90 L 08/08/21 08:00 Intake & Output 08/07/21 08/08/21 08/08/21 18:59 06:59 18:59 Intake Total 118 240 240 Output Total 250 Balance -132 240 240 Intake: Oral 118 240 240 Output: Urine 250 Other: Voiding Method Toilet Toilet # Voids 2 0 - Exam - Constitutional General appearance: disheveled, mild distress, morbidly obese - EENT Eyes: EOMI, PERRLA Ears: bilateral: normal - Neck Neck: normal ROM Carotids: bilateral: upstroke normal Thyroid: bilateral: normal size - Respiratory Respiratory: bilateral: diminished, wheezing (Finding history and expiratory) - Cardiovascular Rhythm: regular Heart sounds: normal: S1, S2 - Neurologic Neurologic: CNII-XII intact - Musculoskeletal Musculoskeletal: gait normal, generalized weakness, strength equal bilaterally - Psychiatric Psychiatric: A&O x's 3, appropriate affect, intact judgment & insight - Labs CBC & Chem 7: 08/08/21 05:21 08/08/21 05:21 Labs: Abnormal Lab Results - Last 24 Hours (Table) 08/07/21 08/08/21 08/08/21 Range/Units 06:42 05:21 05:21 MCV 97.6 H (80.0-97.0) fL MCHC 31.9 L (32.0-37.0) g/dL BUN/Creatinine Ratio 21.22 H 22.11 H (12.00-20.00) Ratio Glucose 132 H 139 H (70-110) mg/dL POC Glucose (mg/dL) (75-99) mg/dL Calcium 8.6 L (8.7-10.3) mg/dL AST 43 H (14-35) U/L ALT 91 H 74 H (10-49) U/L Total Protein 5.8 L 5.7 L (6.2-8.2) g/dL Albumin 3.4 L 3.4 L (3.8-4.9) g/dL Albumin/Globulin Ratio 1.36 L 1.48 L (1.60-3.17) g/dL 08/08/21 Range/Units 07:45 MCV (80.0-97.0) fL MCHC (32.0-37.0) g/dL BUN/Creatinine Ratio (12.00-20.00) Ratio Glucose (70-110) mg/dL POC Glucose (mg/dL) 120 H (75-99) mg/dL Calcium (8.7-10.3) mg/dL AST (14-35) U/L ALT (10-49) U/L Total Protein (6.2-8.2) g/dL Albumin (3.8-4.9) g/dL Albumin/Globulin Ratio (1.60-3.17) g/dL Microbiology - Last 24 Hours (Table) 08/05/21 13:19 Blood Culture - Preliminary Blood No Growth after 48 hours Assessment and Plan Assessment: Acute hypoxic respiratory failure COVID-19 pneumonia Chronic persistent ALLERGIC asthma on Biologics with acute exacerbation Morbid obesity Hypertension hypertensive cardiovascular disease Elevated d-dimer Elevated inflammatory markers Plan: Continue supplemental oxygen patient may very well will require home oxygen as well IV steroids Breathing treatments Continue antibiotics IV REMdesivir Computed tomography scan of the chest reviewed no pulmonary embolism seen Anti-inflammatory electrolytes and vitamins Time with Patient: Greater than 30
--- NOTE | 2021-08-09 10:37 | P.PN ---
Subjective Progress Note Date: 08/09/21 Principal diagnosis: Acute hypoxic respiratory failure COVID-19 pneumonia Chronic persistent ALLERGIC asthma on Biologics with acute exacerbation Morbid obesity Hypertension hypertensive cardiovascular disease Elevated d-dimer Elevated inflammatory markers 08/09/2021, patient has been doing well denies any chest pain some great discrepancy has been noted for duration of REMdesivir, it appears that one does may have left, patient wishes to go home remains on 4 L oxygen, had some third spacing and swelling of the lower extremity got Lasix, can be discharged home from pulmonary standpoint after the fifth dose and follow-up in office 08/08/2021, patient seen and evaluated examined on 4 L oxygen, doing well, continued on bronchodilator deep breathing sense incentive spirometry denies any chest pain breathing relatively better on IV REMdesivirr 08/07/2021, patient seen eval examined his labs reviewed medications reviewed care plan discussed, status remains stable on 4 L oxygen, ongoing shortness of breath on activity and exertion is present but severity or shortness breath is improved patient jacome clear, had to wake up at nighttime for extra treatment, patient appropriately being treated with high-dose steroids breathing treatments bronchodilators and IV REMdesivir for COVID-19 pneumonia and asthma 08/06/2021, patient seen evhumphrey examined during the rounds labs reviewed medications reviewed care plan discussed, respiratory status the is marginal but stable, patient on 4 L oxygen patient remains on IV therapy with REMdesivir, patient remains on bronchodilators along with IV antibiotics, Decadron can be discontinued as patient is on steroids, computed tomography scan of the chest has been reviewed no pulmonary embolism is seen bilateral basal infiltrate and scarring has been seen some compression fracture and find chronic and old some progression may be appreciated Patient is a morbidly obese 71-year-old male with severe persistent ALLERGIC asthma on maintenance dose of prednisone patient started having shortness of breath cough about 5 days ago was having seemed symptoms up to a point that patient was hypoxic with saturation are 89%, patient underwent covert testing came back positive had a monoclonal antibody infusion 48 hours ago yesterday patient notified the office that he is still short of breath with saturation in the 80s advised to come into emergency department for further evaluation and intervention and treatment, chest x-ray positive for interstitial infiltrate. Patient saturation in the emergency department was 90% however with activity drop down to mid 80s, sodium was 132, potassium 5.2 currently patient is on Ro cephin and Zithromax dexamethasone Lovenox Singulair, lactic acid 2.2 improved to 1.3, ferritin is 2003 and 51, LFT mildly elevated, LDH is 1108 C- reactive protein 6.9 pro calcitonin is 0.57, d-dimer is elevated 0.83 Patient is on biologic agents in the Nucala for severe persistent ALLERGIC asthma. Objective - Vital Signs Vital signs: Vital Signs Temp 97.7 F 08/09/21 08:00 Pulse 54 L 08/09/21 08:00 Resp 18 08/09/21 08:00 BP 143/83 08/09/21 08:00 Pulse Ox 94 L 08/09/21 08:00 Intake & Output 08/08/21 08/09/21 08/09/21 18:59 06:59 18:59 Intake Total 720 550 Output Total 600 300 200 Balance 120 250 -200 Intake: Intake, IV Titration 250 Amount Remdesivir 100 mg In 250 Sodium Chloride 0.9% 250 ml @ 250 mls/hr IVPB DAILY@1800 [facility] Rx#: [id number] Oral 720 300 Output: Urine 600 300 200 Other: Voiding Method Toilet Urinal # Voids 2 2 - Exam - Constitutional General appearance: disheveled, mild distress, morbidly obese - EENT Eyes: EOMI, PERRLA Ears: bilateral: normal - Neck Neck: normal ROM Carotids: bilateral: upstroke normal Thyroid: bilateral: normal size - Respiratory Respiratory: bilateral: diminished, wheezing (Finding history and expiratory) - Cardiovascular Rhythm: regular Heart sounds: normal: S1, S2 - Neurologic Neurologic: CNII-XII intact - Musculoskeletal Musculoskeletal: gait normal, generalized weakness, strength equal bilaterally - Psychiatric Psychiatric: A&O x's 3, appropriate affect, intact judgment & insight - Labs CBC & Chem 7: 08/08/21 05:21 08/08/21 05:21 Labs: Abnormal Lab Results - Last 24 Hours (Table) 08/08/21 08/08/21 08/08/21 Range/Units 12:15 17:22 20:42 POC Glucose (mg/dL) 117 H 158 H 135 H (75-99) mg/dL 08/09/21 Range/Units 07:29 POC Glucose (mg/dL) 126 H (75-99) mg/dL Microbiology - Last 24 Hours (Table) 08/05/21 13:19 Blood Culture - Preliminary Blood No Growth after 72 hours Assessment and Plan Assessment: Acute hypoxic respiratory failure COVID-19 pneumonia Chronic persistent ALLERGIC asthma on Biologics with acute exacerbation Morbid obesity Hypertension hypertensive cardiovascular disease Elevated d-dimer Elevated inflammatory markers Plan: Continue supplemental oxygen patient may very well will require home oxygen as well IV steroids can be changed to by mouth prior to discharge Breathing treatments Continue antibiotics IV REMdesivir to finish 5 days therapy Computed tomography scan of the chest reviewed no pulmonary embolism seen Anti-inflammatory electrolytes and vitamins Time with Patient: Greater than 30
--- NOTE | 2021-08-09 11:52 | P.DS ---
Providers Date of admission: 08/04/21 22:19 Attending physician: Hernandez Ruth MD Consults: 08/05/21 09:18 Consult Physician Stat Consulting Provider: Joaquín Mcnulty Consult Reason/Comments: Covid. Do you want consulting provider notified?: Yes [facility] Course: Admission diagnosis Shortness of breath Discharge diagnosis #Covid 19 pneumonitis #Acute hypoxic respiratory failure #Acute exacerbation of asthma Disposition: Patient was discharged home on home oxygen and taper of prednisone and antibiotics. Patient to follow-up with his primary mri tech and primary care physician as ordered. Reason for hospitalization This is a very pleasant 71-year-old male with history of asthma on chronic prednisone who came into emergency department for evaluation of shortness of breath and dry cough malaise chills. He was diagnosed with COVID-19 chest x-ray show bilateral patchy infiltrates. He was admitted for further evaluation Hospital course Patient was treated with steroids, antibiotics, bronchodilators, Remdesevir. Patient shows significant improvement in respiratory symptoms and was eventually brought down to 24 L/m nasal cannula. Patient was cleared by pulmonary for discharge home. Patient had an evaluation for home oxygen and he was discharged home on home oxygen. Pulmonary advice he will Taper off prednisone and antibiotics at discharge. He will eventually continue with his maintenance dose of prednisone and follow up in mri tech office. 45 minutes spent in discharge Patient Condition at Discharge: Stable Plan - Discharge Summary Discharge Rx Participant: No New Discharge Prescriptions: New Cefdinir [Omnicef] 300 mg PO Q12HR 3 Days #6 capsule atenoloL [Tenormin] 25 mg PO DAILY tab Continue RABEprazole SODIUM [Aciphex] 20 mg PO HS Ipratropium-Albuterol Nebulize [Duoneb 0.5 mg-3 mg/3 ml Soln] 3 ml INHALATION RT-QID PRN PRN Reason: Shortness Of Breath predniSONE See Taper PO DAILY #90 tab Mometasone Furoate [Nasonex 50 mcg Nasal [place]] 1 - 2 spray EA NOSTRIL DAILY Mepolizumab [Nucala] 100 mg SQ QMONTHLY Montelukast [Singulair] 10 mg PO HS Budesonide-Formot 160-4.5 Mcg [Symbicort 160-4.5 Mcg Inhaler] 1 puff INHALATION RT-BID Discontinued atenoloL 25 mg PO BID Discharge Medication List RABEprazole SODIUM [Aciphex] 20 mg PO HS 10/25/15 [History] Ipratropium-Albuterol Nebulize [Duoneb 0.5 mg-3 mg/3 ml Soln] 3 ml INHALATION RT-QID PRN 04/11/20 [History] Budesonide-Formot 160-4.5 Mcg [Symbicort 160-4.5 Mcg Inhaler] 1 puff INHALATION RT-BID 07/31/21 [History] Mepolizumab [Nucala] 100 mg SQ QMONTHLY 07/31/21 [History] Mometasone Furoate [Nasonex 50 mcg Nasal [place]] 1 - 2 spray EA NOSTRIL DAILY 07/31/21 [History] Montelukast [Singulair] 10 mg PO HS 07/31/21 [History] Cefdinir [Omnicef] 300 mg PO Q12HR 3 Days #6 capsule 08/09/21 [Rx] atenoloL [Tenormin] 25 mg PO DAILY tab 08/09/21 [Rx] predniSONE See Taper PO DAILY #90 tab 08/09/21 [Rx] Follow up Appointment(s)/Referral(s): Jessy Chung MD [Primary Care Provider] - 1-2 days Joaquín Mcnulty MD [Family Provider] - 1 Week Patient Instructions/Handouts: Using Oxygen at Home (DC) Activity/Diet/Wound Care/Special Instructions: Check CBC, BMP next week with primary care physician Discharge Disposition: HOME WITH HOME HEALTH SERVICES
[2021-08-09 12:25] LABS: Glucose,Whole Blood 128 mg/dL (75-99)
[2021-08-09] MEDS: REMDESIVIR 100 MG in SODIUM CHLORIDE 0.9% 250 ML IVPB SCH (13:26)
[2021-08-09 15:23] VITALS: BP 135/79; PULSE 65; RESP 16; TEMP 97.9
[2021-08-10] MEDS ORDERED: atenoloL 25 MG TAB PO SCH (09:00)
[2021-08-22] MEDS ORDERED: MEPOLIZUMAB 100 MG/ML SQ SCH (09:00)
== END 2021-08-09 15:38 | disposition home health service (06) | DRG 871 ==
LOC: EC 18:02 → 4SSUR 22:19 → 6NMEDSUR 08-05 10:30
PROVIDERS: ADMIT Internal Medicine; ATTEND Internal Medicine
PROC: XW033E5 Introduction of Remdesivir Anti-infective into Peripheral Vein, Percutaneous Approach, New Technology Group 5 (ICD-10-PCS; principal; 2021-08-04)
DX: A41.89 Other specified sepsis (principal); U07.1 COVID-19; J12.82 Pneumonia due to coronavirus disease 2019; J96.01 Acute respiratory failure with hypoxia; J44.0 Chronic obstructive pulmonary disease with (acute) lower respiratory infection; J45.901 Unspecified asthma with (acute) exacerbation; J98.11 Atelectasis; E66.01 Morbid (severe) obesity due to excess calories; Z68.37 Body mass index [BMI] 37.0-37.9, adult; E78.5 Hyperlipidemia, unspecified; G47.33 Obstructive sleep apnea (adult) (pediatric); I11.9 Hypertensive heart disease without heart failure; J84.10 Pulmonary fibrosis, unspecified; Z79.51 Long term (current) use of inhaled steroids; Z79.52 Long term (current) use of systemic steroids; Z79.899 Other long term (current) drug therapy; Z82.49 Family history of ischemic heart disease and other diseases of the circulatory system; Z87.891 Personal history of nicotine dependence; H26.9 Unspecified cataract; M19.90 Unspecified osteoarthritis, unspecified site; K44.9 Diaphragmatic hernia without obstruction or gangrene; E87.5 Hyperkalemia; Z86.010 Personal history of colon polyps; K22.70 Barrett's esophagus without dysplasia; Z98.890 Other specified postprocedural states; Z90.89 Acquired absence of other organs; M54.9 Dorsalgia, unspecified; Z80.0 Family history of malignant neoplasm of digestive organs; Z87.01 Personal history of pneumonia (recurrent); Z88.1 Allergy status to other antibiotic agents; Z88.8 Allergy status to other drugs, medicaments and biological substances
CPT/HCPCS: 36415; 71045; 71275; 80048; 80053; 82728; 83605; 83615; 83735; 83880; 84145; 84484; 85025; 85027; 85379; 85610; 85730; 86140; 86738; 87040; 87070; 87449; 93005; 94640; 94760; 96361; 96374; 99285

== ENCOUNTER → 2022-01-30 | Outpatient (CLI) | payer MEDICARE, BC ==
--- NOTE | 2022-01-30 10:18 | XR ---
EXAMINATION TYPE: XR chest 2V DATE OF EXAM: 01/30/2022 COMPARISON: Chest x-ray August 04, 2021. CTA chest August 05, 2021. HISTORY: COVID. Right-sided pain. TECHNIQUE: Frontal and lateral views of the chest are obtained. FINDINGS: [id number] parenchymal fibrotic changes greatest in the periphery of the right upper to midlung. No pleural effusion or pneumothorax seen bilaterally. The cardiac silhouette size is st able and upper limits of normal with atherosclerotic thoracic aorta. The osseous structures are int act. IMPRESSION: [id number] parenchymal fibrotic changes greatest in the right lung. No new acute p ulmonary process.
--- NOTE | 2022-01-30 11:12 | XR ---
EXAMINATION TYPE: XR ribs RT DATE OF EXAM: 01/30/2022 COMPARISON: Chest x-ray January 30, 2022 HISTORY: Recent fall injury with pain. TECHNIQUE: A frontal and oblique images of the right-sided ribs are obtained. FINDINGS: There are old healed fractures of the anterolateral upper to mid right-sided ribs. No acute displaced fractures are evident. Evaluation slightly suboptimal due to large body habitus. Chronic p arenchymal changes in the visualized right lung are noted with moderate right apical pleural thickeni ng. IMPRESSION: As above.
== END | disposition home or self-care (01) ==
LOC: RADXRMAIN 09:56
PROVIDERS: ATTEND Internal Medicine Sleep Medicine
DX: U07.1 COVID-19 (principal); J84.10 Pulmonary fibrosis, unspecified; J92.9 Pleural plaque without asbestos
CPT/HCPCS: 71046

== ENCOUNTER → 2022-07-21 | Outpatient (CLI) | payer MEDICARE, BC ==
--- NOTE | 2022-07-21 13:04 | XR ---
EXAMINATION TYPE: XR chest 2V DATE OF EXAM: 07/21/2022 12:58 PM COMPARISON: Chest radiographs from 01/30/2022 TECHNIQUE: XR chest 2V Frontal and lateral views of the chest. CLINICAL INDICATION:Male, 72 years old with history of J20.9 bronchitis; FINDINGS: Lungs/Pleura: There is no evidence of pleural effusion, focal consolidation, or pneumothorax. Bibasi lar hazy opacities likely related to overlying soft tissue. Pulmonary vascularity: Unremarkable. Heart/mediastinum: Cardiomediastinal silhouette is unremarkable. Musculoskeletal: No acute osseous pathology. Remote right-sided rib fractures. Remote multilevel thor acic compression deformities. IMPRESSION: No acute cardiopulmonary disease/process.
== END | disposition home or self-care (01) ==
LOC: RADXRMAIN 12:49
PROVIDERS: ATTEND Internal Medicine Sleep Medicine
DX: J20.9 Acute bronchitis, unspecified (principal)
CPT/HCPCS: 71046

== ENCOUNTER 2024-06-28 06:31 | Day surgery (SDC) | payer MEDICARE, BC ==
[2024-06-28] MEDS: IV FLUID CONTINUATION 1,000 ML IV ONE (06:56)
[2024-06-28] MEDS: LACTATED RINGERS 1,000 ML IV SCH (07:01)
[2024-06-28 07:08] VITALS: TEMP 97.8
[2024-06-28 07:10] LABS: Glucose,Whole Blood 86 mg/dL (70-110)
[2024-06-28] MEDS ORDERED: PROPOFOL 10 MG/ML 20 ML VIAL IV ONE (07:42)
[2024-06-28] MEDS ORDERED: LIDOCAINE 1% INJ 10MG/ML (20 ML MDV) ONE (07:42)
--- NOTE | 2024-06-28 08:11 | P.PCN ---
Date of Procedure: 06/28/24 Procedure(s) Performed: Brief history: Patient is a pleasant 82-year-old white male scheduled for an elective upper endoscopy as well as colonoscopy as a part of evaluation of GERD/Zafar's esophagus and history of colon polyps Procedure performed: Esophagogastroduodenoscopy with biopsy Colonoscopy with biopsy and cold snare polypectomy Preoperative diagnosis: Longstanding history of GERD/Zafar's esophagus History of colon polyps Anesthesia: MAC Procedure: After informed consent was obtained from the patient was brought into the endoscopy unit and IV sedation was administered by anesthesia under continuous monitoring. Initially upper endoscopy was done. The Olympus GF 160 video endoscope was inserted inserted into the mouth and esophagus intubated without any difficulty and was gradually advanced into the stomach and duodenum and carefully examined. The bulb and second part of the duodenum appeared normal. The scope was then withdrawn into the stomach adequately insufflated with air and upon careful examination the antrum and body, cardia and fundus appeared normal. The scope was then withdrawn into the esophagus. Moderate size hiatal hernia noted. The GE junction was located at 35 cm to the incisors. There was a long segment of Zafar's esophagus extending from 30 to 35 cm from the incisors and multiple biopsies were done in the segment of Zafar's esophagus. Mucosa in the segment of Zafar's esophagus appeared smooth with no nodularity or ulcerations noted. ons. Rest of the esophagus appeared normal. Patient tolerated the procedure well. At this time the patient continued to remain sedation. Initial digital rectal examination was normal. Olympus CF 160 video colonoscope was then inserted into the rectum and gradually advanced to the cecum without any difficulty. Careful examination was performed as the scope was gradually being withdrawn. The prep was excellent. The cecum, ascending colon, within the transverse colon there was a 2 mm polyp that was removed by cold biopsy. In the descending colon there was a 1 cm polyp removed by snare polypectomy. Rest of the transverse colon, descending colon, sigmoid colon and rectum appeared normal. Scattered left- sided diverticulosis seen. Retroflexion was performed in the rectum and no lesions were noted. Patient tolerated the procedure well. Impression: 1. Upper endoscopy revealed long segment Zafar's esophagus extending from 30 to 35 cm from the incisors s/p multiple biopsies, moderate size hiatal hernia and gastric polyps 2. Colonoscopy revealed 2 mm transverse colon polyp status post cold biopsy and 1 cm ascending colon polyp status post snare polypectomy and scattered sigmoid diverticulosis Recommendations: Findings of this examination were discussed with the patient as well as his family. He was advised to follow-up with the biopsy results. If the biopsy reveals no evidence of dysplasia he can have repeat upper endoscopy in 3 years. Recommended repeat colonoscopy in 3 years because of history of colon polyps
[2024-06-28 08:37] VITALS: BP 133/83; PULSE 81; RESP 18
== END 2024-06-28 08:54 | disposition home or self-care (01) ==
LOC: ORWHC2ENDO 06:31
PROVIDERS: ATTEND Internal Medicine Gastroenterology
DX: Z12.11 Encounter for screening for malignant neoplasm of colon (principal); D12.4 Benign neoplasm of descending colon; K63.5 Polyp of colon; K57.30 Diverticulosis of large intestine without perforation or abscess without bleeding; K21.00 Gastro-esophageal reflux disease with esophagitis, without bleeding; K22.70 Barrett's esophagus without dysplasia; K31.7 Polyp of stomach and duodenum; G47.33 Obstructive sleep apnea (adult) (pediatric); J45.909 Unspecified asthma, uncomplicated; Z79.51 Long term (current) use of inhaled steroids; Z79.899 Other long term (current) drug therapy; Z87.891 Personal history of nicotine dependence; Z86.0100 Personal history of colon polyps, unspecified; Z88.1 Allergy status to other antibiotic agents; Z88.8 Allergy status to other drugs, medicaments and biological substances
CPT/HCPCS: 88305; 45380; 45385; 43239; J2003; J2704

== ENCOUNTER → 2024-08-03 | Outpatient (CLI) | payer MEDICARE, BC ==
--- NOTE | 2024-08-03 12:03 | XR ---
2 view chest HISTORY: Persistent asthma COMPARISON: 07/21/2022 TECHNIQUE: PA and lateral views chest obtained. FINDINGS: The lungs are clear of consolidative, interstitial or masslike opacity. There is no pleural effusion, pleural thickening or pneumothorax. The heart, pulmonary vasculature, mediastinum and papito are within normal limits. The osseous structures and soft tissues of the thorax are intact. IMPRESSION: No significant abnormality. No acute cardiopulmonary disease. [facility], , 08/03/2024 12:01 PM
== END | disposition home or self-care (01) ==
LOC: RADXRMAIN 11:12
PROVIDERS: ATTEND Internal Medicine Sleep Medicine
DX: J45.51 Severe persistent asthma with (acute) exacerbation (principal)
CPT/HCPCS: 71046

== ENCOUNTER → 2024-09-06 | Outpatient (CLI) | payer MEDICARE, BC ==
--- NOTE | 2024-09-06 10:25 | US ---
EXAMINATION TYPE: US abdomen comp/pelvis limited DATE OF EXAM: 09/06/2024 COMPARISON: NONE CLINICAL INDICATION: Male, 74 years old with history of R39.89 HEMATURIA; flank pain and hematuria TECHNIQUE: Grayscale color Doppler imaging of the abdomen and pelvis. FINDINGS: EXAM MEASUREMENTS: Liver Length: 20.2 cm Gallbladder Wall: 0.2 cm CBD: 0.3 cm Spleen: 9.4 cm Right Kidney: 12.5x5.7x6.4 cm Left Kidney: 12.8x5.7x6.4 cm Pancreas: obscured by bowel gas Liver: enlarged, echogenic, attenuation made visualization of diaphragm difficult to obtain measurem ent Gallbladder: internal echoes. sludge vs. other CBD: wnl Spleen: wnl Right Kidney: No hydronephrosis or masses seen Left Kidney: No hydronephrosis or masses seen Upper IVC: Obscured by overlying bowel gas Abd Aorta: Obscured by overlying bowel gas Bladder: wnl Bilateral Jets Seen Yes exam very limited by bowel gas and body habitus Suboptimal study. Visualized liver is heterogeneously hyperechoic. Evaluation for focal masses subopt imal due to the heterogeneity. Finding consistent with underlying hepatocellular disease. Poor visual ization of gallbladder with possible internal sludge. No shadowing mobile gallstones. No gross hydron ephrosis in either kidney. Spleen is normal in size. IMPRESSION: Markedly suboptimal study. No findings identified to account for patient's symptoms. If s ymptoms of hematuria persists further investigation with CT urogram would be warranted. [facility], , 09/06/2024 10:23 AM
== END | disposition home or self-care (01) ==
LOC: RADUSWWP 07:19
PROVIDERS: ATTEND Family Medicine
DX: R39.89 Other symptoms and signs involving the genitourinary system (principal)
CPT/HCPCS: 76700; 76857

== ENCOUNTER → 2024-09-20 | Outpatient (CLI) | payer MEDICARE, BC ==
[2024-09-20 15:02] LABS: HCT 51.3 % (39.6-50.0); HGB 17.3 g/dL (13.0-17.0); MCH 32.2 pg (27.0-32.0); MCHC 33.7 g/dL (32.0-37.0); MCV 95.4 FL (80.0-97.0); Mean Platelet Volume 10.7 FL (9.5-12.2); NRBC Per 100 WBC 0 X 10*3/uL (0.00-0.01); Platelet Count 192 X 10*3/uL (140-440); RBC 5.38 X 10*6/uL (4.40-5.60); RDW 13.8 % (11.5-14.5); WBC 8.53 X 10*3/uL (4.50-10.00)
[2024-09-20 15:13] LABS: Blood Urea Nitrogen 15.7 mg/dL (9.0-27.0); Carbon Dioxide 26.1 mmol/L (21.6-31.8); Chloride 103 mmol/L (96-109); Potassium 4.9 mmol/L (3.5-5.5); Sodium 140 mmol/L (135-145)
== END | disposition home or self-care (01) ==
LOC: LABWHC1 11:20
PROVIDERS: ATTEND Internal Medicine Interventional Cardiology
DX: Z01.812 Encounter for preprocedural laboratory examination (principal); R94.39 Abnormal result of other cardiovascular function study
CPT/HCPCS: 36415; 80051; 82565; 84520; 85027

== ENCOUNTER → 2024-10-03 | Outpatient (CLI) | payer MEDICARE, BC ==
--- NOTE | 2024-10-03 15:35 | CT ---
EXAMINATION TYPE: CT abdomen pelvis w con DATE OF EXAM: 10/03/2024 COMPARISON: None CLINICAL INDICATION: Male, 74 years old with history of R39.89 OTHER SYMPTOMS AND SIGNS INVOLVING THE DANIELA; PHH, Air when he urinates. TECHNIQUE: Performed with Oral Contrast and with IV Contrast, patient injected with 100 ml mL of Isovue 300. CT DLP: 2375.[address] CTDI: mGy Automated exposure control for dose reduction was used. Findings: The lung bases are clear. There is a small hiatal hernia. The gallbladder is normal without distention, wall thickening, pericholecystic fluid or gallstones. T here is no biliary ductal dilatation. There is no focal mass or organomegaly involving the liver, pancreas, spleen or adrenal glands. There is marked liver steatosis. There is no solid renal mass or hydronephrosis and there is homogeneous contrast enhancement of the r enal parenchyma. The urinary bladder is unremarkable. The caliber the abdominal aorta is normal is no retroperitoneal adenopathy or hemorrhage. The bowel loops are normal in caliber and there is no evidence of dilatation or obstruction. No infla mmatory changes are identified in the bowel wall or mesentery. There is no free intraperitoneal air or fluid. No pelvic mass, free fluid, abscess or adenopathy. There is no evidence of urinary bladder fistula The osseous structures and soft tissues are intact. IMPRESSION: 1. No significant abnormality of the urinary bladder, kidneys or collecting systems. 2. Small hiatal hernia. 3. Marked liver steatosis. 4. No acute changes within the abdomen or pelvis. [facility], , 10/03/2024 3:32 PM
== END | disposition home or self-care (01) ==
LOC: RADCTMAIN 13:16
PROVIDERS: ATTEND Urology
DX: K44.9 Diaphragmatic hernia without obstruction or gangrene (principal); K76.0 Fatty (change of) liver, not elsewhere classified; R39.89 Other symptoms and signs involving the genitourinary system
CPT/HCPCS: 74177; 36415; Q9967

== ENCOUNTER → 2024-12-28 | Outpatient (CLI) | payer MEDICARE, BC ==
[2024-12-28 15:44] LABS: ALT 59 U/L (10-49); AST 38 U/L (14-35); Chol/HDL Ratio 3.67 Ratio; LDL Cholesterol,Calculated 178.5 mg/dL (0.0-131.0)
== END | disposition home or self-care (01) ==
LOC: LABWHC1 08:13
PROVIDERS: ATTEND Internal Medicine Clinical Cardiac Electrophysiology
DX: E78.2 Mixed hyperlipidemia (principal)
CPT/HCPCS: 36415; 80061; 84450; 84460